=== PATIENT | female | born 1940 | race Caucasian/White ===

== ENCOUNTER 2019-06-23 11:50 | Inpatient (IN) ==
[2019-06-23] MEDS ORDERED: SODIUM CHLORIDE 0.9% INJ SCH (13:00)
[2019-06-23] MEDS ORDERED: PROTONIX IV SCH (13:00)
[2019-06-23 13:30] LABS: BASO# 0.03 X1000 (0.0-0.2); BASO% 0.4 % (0.0-0.8); EOS# 0.07 X1000 (0.0-0.7); EOS% 0.8 % (0.0-10.0); HEMATOCRIT 39.1 % (37.0-47.0); HEMOGLOBIN 12.9 g/dL (12.0-16.0); LYMPH# 0.98 X1000 (1.2-3.4); LYMPH% 11.5 % (20.5-51.1); MCH 28.9 PG (27-31); MCV 87.7 FL (81-99); MONO# 0.56 X1000 (0.11-0.59); MONO% 6.6 % (1.7-9.3); MPV 9.1 FL (7.4-10.4); NEUT# 6.86 X1000 (1.4-6.5); NEUT% 80.7 % (42.2-75.2); PLT 226 X1000 (130-400); RBC 4.46 XMIL (4.2-5.4)
--- NOTE | 2019-06-23 13:42 | Diag Imaging Result Doc PS360 ---
EXAM: CHEST-2 VIEWS INDICATION: Cough TECHNIQUE: 2 views COMPARISON: 06/20/2019 FINDINGS: The lungs are grossly clear. There is no discrete pleural fluid collection or pneumothorax. The cardiomediastinal silhouette and central vasculature are grossly unremarkable. IMPRESSION: No evidence of acute pathology by plain radiograph. Electronically signed by Praveen Balbuena 06/23/2019 1:39 PM
[2019-06-23 13:49] LABS: CALCIUM 9.1 mg/dL (8.8-10.2); CREATININE 1.5 mg/dL (0.5-0.9); POTASSIUM 4.7 mmol/L (3.5-5.1)
--- NOTE | 2019-06-23 14:30 | HISTORY AND PHYSICAL ---
PRIMARY CARE PHYSICIAN: Dr. Georges Patel. CHIEF COMPLAINT: Elevated blood pressure and rectal bleeding over the past several days that has progressively worsened. HISTORY OF PRESENTING ILLNESS: This is a 79-year-old female who presented as a direct admission from her primary care physician's office, Dr. Patel. She had apparently come to the emergency room on 06/20/2019 with an elevated blood pressure and was sent home to follow up with her primary care physician. She did that today and while in the office, was found to have a blood pressure of 198/100. States that over the past 4 to 5 days, she had been having some bright red rectal bleeding that occurred any time she sat down at the toilet to use the bathroom, and denied any abdominal pain. She did have some mild nausea. Denied any chest pain, headache, blurred vision, so it was felt that she would be direct admitted for further evaluation and treatment. PAST MEDICAL HISTORY: Hypertension, GERD, irritable bowel syndrome, gout, rheumatoid arthritis, and major depressive disorder. PAST SURGICAL HISTORY: Appendectomy, cholecystectomy, hysterectomy, and tonsillectomy. FAMILY HISTORY: Of diabetes, coronary artery disease, CVA, and hypertension. SOCIAL HISTORY: She currently lives with family. Denied any tobacco, alcohol, or illicit drug use. ALLERGIES: Honey, peanuts, shellfish-derived, aspirin, codeine, Benadryl, lidocaine, Demerol, penicillin, Darvon, and sulfa drugs. HOME MEDICATIONS: A current list will need to be obtained, reconciled, reviewed, and restarted as appropriate. We will place an order for nursing to update and confirm home medications. LABORATORY DATA: We are obtaining a CBC, BMP, stool for occult blood, two-view chest x-ray, CPK, troponin, magnesium level, and we will review those once they have resulted. REVIEW OF SYSTEMS: She denied any fever, chills, blurred vision, dizziness, chest pain, coughing, shortness of breath. She did have some mild nausea, bright red rectal bleeding. No constipation, diarrhea, burning or hurting with urination. PHYSICAL EXAMINATION: VITAL SIGNS: On arrival, she had a blood pressure of 198/100. GENERAL: This is a 79-year-old, female, lying in the bed. Answers questions appropriately. HEENT: Normocephalic, atraumatic. Normal ENT inspection. Oropharynx and nares are clear. Eyes: Pupils are equal, round, and reactive to light and accommodation. Extraocular movements are intact. NECK: Normal inspection. Normal range of motion. LUNGS: Clear to auscultation bilaterally with equal lung expansion and chest wall movement. HEART: Regular rate and rhythm. No murmurs, rubs, or gallops. ABDOMEN: Soft, nontender, nondistended. Bowel sounds are present x4 quadrants. MUSCULOSKELETAL: She had 5/5 strength x4 extremities. NEUROLOGICAL: The cranial nerves 2-12 appear grossly intact. ASSESSMENT: 1. Uncontrolled hypertension. 2. Gastrointestinal bleed. 3. Gastroesophageal reflux disease. 4. History of irritable bowel syndrome. PLAN: She was admitted to the medical unit, placed on telemetry, healthy heart diet. We will apply SCDs for DVT prophylaxis. Update and confirm home medications. We will consult GI. We will check a CBC, BMP, stool for occult blood, magnesium, CPK, troponin, two-view chest x-ray. Placed on hydralazine 10 mg IV q.4 hours p.r.n. for systolic blood pressure greater than 190, diastolic greater than 110. Protonix 40 mg IV q.24. Further orders after seen by attending and by insurance healthcare consultant. Dictated by LAURITA Wood for Eris Markham MD cc: LAURITA Wood MD Kirk L. Jackson, MD
[2019-06-23] MEDS: APRESOLINE IV PRN (15:07)
[2019-06-23] MEDS: AVAPRO PO SCH (16:45)
[2019-06-23] MEDS: D5 1/2 NS + KCL 20 MEQ 1,000 ML IV SCH (16:45)
[2019-06-23] MEDS ORDERED: GOLYTELY PO ONE (17:00)
--- NOTE | 2019-06-23 17:39 | HISTORY AND PHYSICAL ---
ADDENDUM: I have seen and examined Ms. Crespo today. The son was at the bedside at the time of the encounter. Ms. Crespo was a direct admit from Dr. Georges Patel office because of severe uncontrolled hypertension and rectal bleed. Ms. Crespo refers that for the past couple days about 3 days now she has a lot of rectal bleed which is bright red most times after using the restroom. Denies any chest pain. Denies any orthostatic symptoms. She also refers that lately her blood pressures have been extremely high. She has a history of hemorrhoids. She normally sees Dr. Ramsey and according to her, her last colonoscopy was done about 3 years to 4 years ago and to her knowledge everything was fine. Currently her vitals blood pressure is 204/110, pulse is about 80, respiration is 18. Physical exam for most part is unremarkable except that she is BMI is 38.8 and she is slightly dry on the mucous exams, abdomen is distended but nontender.Extremities: No pedal edema. 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 Her lab work this morning reveals normal CBC. Chemistry shows a creatinine of 1.5 which seems to be slightly higher than her baseline. BUN is also at 29. Chest x-ray shows no evidence of acute pathology. ASSESSMENT: 1. Hypertensive urgency. Patient will be started back on her home medications and titrate for better pressure control. 2. Painless rectal bleed of unclear etiology. Patient's hemoglobin and hematocrit at this point is stable, we are going to be trending this every 6 hours, we also notified GI to evaluate her. 3. Mild volume depletion. Will start the patient on the baseline IV fluids. 4. Acute on chronic renal failure. 5. Hearing impairment. So in general I think Ms. Crespo is fairly stable. She does not seems to have any acute end organ symptoms related to the uncontrolled hypertension. We will restart her back on her home medications, withhold the hydrochlorothiazide because of the clinical volume depletion. We also added carvedilol are to help with blood pressure management. GI has been consulted to evaluate. Please refer to the details of the history and physical which has been dictated by the TRAFFIC ANALYST in the chart. cc: MD SOLOMON Linares
[2019-06-23 18:01] LABS: HEMATOCRIT 39.9 % (37.0-47.0); HEMOGLOBIN 13.7 g/dL (12.0-16.0)
[2019-06-23] MEDS: ISOPTIN SR PO SCH (21:11)
[2019-06-23] MEDS: ATIVAN PO SCH (21:11)
[2019-06-23] MEDS: TRESIBA FLEXTOUCH U-200 SUBQ SCH (21:12)
[2019-06-23] MEDS: APRESOLINE PO SCH (21:12)
[2019-06-23] MEDS: INSULIN PEN NEEDLES ONE ×2 (21:12→21:17)
[2019-06-23] MEDS: COREG PO SCH (21:12)
[2019-06-24] MEDS: ZOFRAN IV PRN ×2 (03:04→20:14)
[2019-06-24] MEDS: D5 1/2 NS + KCL 20 MEQ 1,000 ML IV SCH (05:03)
[2019-06-24 06:04] LABS: BASO# 0.02 X1000 (0.0-0.2); BASO% 0.3 % (0.0-0.8); EOS# 0.09 X1000 (0.0-0.7); EOS% 1.2 % (0.0-10.0); HEMATOCRIT 36.1 % (37.0-47.0); HEMOGLOBIN 12.1 g/dL (12.0-16.0); LYMPH# 0.87 X1000 (1.2-3.4); LYMPH% 11.7 % (20.5-51.1); MCH 29.2 PG (27-31); MCHC 33.5 g/dL (33-37); MCV 87.2 FL (81-99); MONO# 0.52 X1000 (0.11-0.59); MPV 9.4 FL (7.4-10.4); NEUT# 5.96 X1000 (1.4-6.5); NEUT% 79.8 % (42.2-75.2); PLT 217 X1000 (130-400); RBC 4.14 XMIL (4.2-5.4); RDW 13.9 % (11.5-14.5); WBC 7.46 X1000 (4.8-10.8)
[2019-06-24 06:20] LABS: CALCIUM 7.8 mg/dL (8.8-10.2); CREATININE 1.3 mg/dL (0.5-0.9); POTASSIUM 4.2 mmol/L (3.5-5.1)
[2019-06-24 06:43] LABS: URINE SOURCE CLEAN CATCH
[2019-06-24 06:47] LABS: BILIRUBIN URINE NEGATIVE (NEGATIVE); BLOOD URINE TRACE (NEGATIVE); COLOR YELLOW; GLUCOSE URINE NEGATIVE (NEGATIVE); KETONE URINE NEGATIVE (NEGATIVE); LEUKOCYTES URINE MODERATE (NEGATIVE); NITRITE URINE NEGATIVE (NEGATIVE); PROTEIN URINE TRACE mg/dL (NEGATIVE); SP GRAVITY URINE 1.019; TURBIDITY URINE CLEAR (CLEAR); UROBILINOGEN URINE NORMAL (NORMAL)
[2019-06-24 06:49] LABS: UR EPITHELIAL CELLS <10 /HPF (<10); URINE BACTERIA 1+ /HPF; URINE RBC 20-40 /HPF (<10)
[2019-06-24] MEDS: VIIBRYD PO SCH (08:23)
[2019-06-24] MEDS: ISOPTIN SR PO SCH ×2 (08:23→20:14)
[2019-06-24] MEDS: APRESOLINE PO SCH ×3 (08:23→20:14)
[2019-06-24] MEDS: AVAPRO PO SCH (08:23)
[2019-06-24] MEDS: COREG PO SCH ×2 (08:23→20:14)
[2019-06-24] MEDS: ATIVAN PO SCH ×2 (08:23→20:14)
[2019-06-24] MEDS ORDERED: HYDROCHLOROTHIAZIDE PO SCH (09:00)
--- NOTE | 2019-06-24 12:37 | GASTROENTEROLOGY CONSULTATION ---
DATE: 06/24/2019 REASON FOR CONSULTATION: Rectal bleeding. HISTORY OF PRESENT ILLNESS: This is a 79-year-old female who was a direct admission from her primary care doctor's office, Dr. Georges Patel. Patient had previously been in to the emergency room on 06/20/2019 with elevated blood pressure and was instructed to follow up with her primary physician. She saw Dr. Patel on the date of admission, in his office. Her blood pressure was 198/100. She has also reported having 4 to 5 days of bright red rectal bleeding any time she went to the bathroom. Denies abdominal pain, reported some mild nausea but no reported vomiting. No reported chest pain or headache. No dizziness or lightheadedness. They are working on getting her blood pressure under control. From our records the patient was last seen in our office in 2014. Her last endoscopy procedures were in 2011. She had an EGD and colonoscopy with findings of normal esophagus, gastritis, external hemorrhoids, diverticulosis and any rectal polyp. PAST MEDICAL HISTORY: 1. Hypertension. 2. GERD. 3. Irritable bowel syndrome. 4. Gout. 5. Rheumatoid arthritis. 6. Major depressive disorder. PAST SURGICAL HISTORY: Appendectomy, cholecystectomy, hysterectomy, tonsillectomy. ALLERGIES: Honey causing shortness of breath. Peanuts shortness of breath. Shellfish shortness of breath. Aspirin nausea. Codeine itching. Benadryl nausea and vomiting. Lidocaine itching. Demerol flushing. Penicillin shortness of breath. Darvon flushing. Sulfonamide antibiotics flushing. HOME MEDICATIONS: 1. Benzonatate 100 mg 3 times a day as needed. 2. Vitamin B12 liquid 1000 mcg as needed. 3. Dexilant 60 mg daily. 4. Hydrochlorothiazide 12.5 mg every day. 5. Insulin 20 units every night. 6. Irbesartan 150 mg daily. 7. Ativan 0.5 mg 3 times a day. 8. Nystatin topical every night. 9. Zofran 4 mg every 4 hours as needed. 10. Verapamil 180 mg twice a day. 11. Viibryd 20 mg daily. SOCIAL HISTORY: She lives with family. Denies tobacco or alcohol use. FAMILY HISTORY: Diabetes, coronary artery disease, history of cerebrovascular accident and hypertension in her family. REVIEW OF SYSTEMS: Per history of present illness. PHYSICAL EXAMINATION: Vital Signs: Temperature 98 degrees, pulse 70, respirations 14, blood pressure 112/69. General: Patient is awake and alert. She is in no acute distress. She is hard of hearing. She has family members at the bedside at the time of my visit. HEENT: Normocephalic, atraumatic. Pupils equal, round, reactive to light. Sclerae nonicteric. Respiratory: Lung sounds essentially clear. Cardiovascular: Regular rate and rhythm. Abdomen: Soft, nontender. Positive bowel sounds. Nondistended. Extremities: No lower extremity edema noted. Neurologically: Cranial nerves 2-12 grossly intact. Patient is awake, alert, oriented to person, place, and time. LABORATORY: Hematology: WBCs 7.46 hemoglobin 12.1, hematocrit 36.1, MCV 87.2, platelets 217,000. Chemistry: Sodium 136, potassium 4.2, chloride 96, CO2 24, BUN 23, creatinine 1.3, glucose 164, calcium 7.8. ASSESSMENT,: 1. Hypertension. Patient has had medications. We will continue to follow her blood pressure. 2. Recent lower gastrointestinal bleeding. Currently hemoglobin and hematocrit is stable. Patient has had a bowel movement today with some noted blood per nurse report. 3. Gastroesophageal reflux disease on proton pump inhibitors. Patient does complain of occasional dysphagia. 4. Patient has history of irritable bowel syndrome. PLAN: Continue to monitor her blood pressure. Monitor for any further signs of active bleeding. Monitor hemoglobin and hematocrit and transfuse packed red blood cells if needed. If her blood pressure is stable we will proceed with EGD and colonoscopy. Patient was able to tolerate the colon prep last evening. Per nurse report, she is clear for colonoscopy procedure. Due to her complaints of dysphagia, we will also proceed with EGD. I have discussed the procedures along with benefits and risks, and patient wishes to proceed. I have discussed this case with Dr. Ramsey. Further plans will be made according to findings. Thank you for this consultation. Dictated by LAURITA Oneal for Chase Ramsey MD cc: LAURITA Dwyer MD
[2019-06-24] MEDS ORDERED: XYLOCAINE-MPF 2% ONE (12:49)
[2019-06-24] MEDS ORDERED: DIPRIVAN 1% ONE ×2 (12:49→13:15)
[2019-06-24] MEDS ORDERED: ROBINUL ONE (12:49)
[2019-06-24] MEDS ORDERED: CALMOSEPTINE OINTMENT TOP ONE (13:25)
--- NOTE | 2019-06-24 13:33 | ENDOSCOPY OPERATIVE NOTE ---
[facility] ENDOSCOPY OPERATIVE NOTE , PATIENT: Jesus Crespo ADMISSION DATE: 06/24/2019 MR#: [id number] : 1940 [facility] #: [id number] EGD PROCEDURE REPORT PROCEDURE DATE: 06/24/2019 SURGEON: Chase Ramsey MD STATUS: inpatient O AND M SUPERVISOR: Sneha De Santiago and Linh Molina PREOPERATIVE DIAGNOSIS: The patient is a 79 yr old female here for an EGD due to dysphagia, pharynge al-esophageal . PROCEDURE PERFORMED: EGD w/ dilation of esophagus via guidewire MEDICATIONS: Per Anesthesia TOPICAL ANESTHETIC: none CONSENT: The patient understands the risks and benefits of the procedure and understands that these r isks include, but are not limited to: sedation, allergic reaction, infection, perforation and/or bleeding. Alternative means of evaluation and treatment include, among others: physical exam, x-rays, and/or surgical intervention. The patient elects to proceed with this endoscopic procedure. HISORY AND PHYSICAL: 06/24/2019 DESCRIPTION OF PROCEDURE: During intra-op preparation period all mechanical and medical equipment was checked for proper function. Hand hygiene and appropriate measures for infection prevention was taken. After the risks, benefits and alternatives of the procedure were thoroughly explained, Informed consent was verified, confirmed and timeout was successfully executed by the treatment team. The patient was anesthetized with topical anesthesia and the [id number] ([id number]) endoscope was introduced through the mouth and advanced to the second portion of the duoden um. Retroflexion was performed in the stomach and revealed no abnormalities. The gastroscope was then slowly withdraw n and removed. ESOPHAGUS: A mildly severe Schatzki ring was found 40 cm from the incisors and at the gastroesophagea l junction. The stricture was dilated using a 20mm (60Fr) savary dilator over guidewire. Following this dilation, th ere was a small mucosal rent and a small amount of heme. The esophagus was otherwise normal. STOMACH: The mucosa of the stomach appeared normal. DUODENUM: The duodenal mucosa showed no abnormalities. SPECIMENS REMOVED: No ADVERSE EVENTS: There were no complications. POSTOPERATIVE DIAGNOSIS: 1. Schatzki ring was found 40 cm from the incisors and at the gastroeso phageal junction; The stricture was dilated using a 20mm (60Fr) savary dilator over guidewire.; Following this dilation , there was a small mucosal rent and a small amount of heme 2. The esophagus was otherwise normal 3. The mucosa of the stomach appeared normal 4. The duodenal mucosa showed no abnormalities RECOMMENDATIONS: 1. Start taking the following medications as prescribed: Carafate. 2. Omeprazole (Prilosec) 40mg PO daily 3. Continue to colonoscopy procedure REPEAT EXAM: Chase Ramsey MD eSigned: Chase Ramsey MD 06/24/2019 1:32 PM cc: Georges Patel MD PATIENT NAME: Jesus Crespo MR#: [id number]
--- NOTE | 2019-06-24 13:37 | ENDOSCOPY OPERATIVE NOTE ---
[facility] ENDOSCOPY OPERATIVE NOTE , PATIENT: Jesus Cresop ADM DATE: 06/24/2019 MR #: [id number] : 1940 COLONOSCOPY PROCEDURE REPORT PROCEDURE DATE: 06/24/2019 SURGEON: Chase Ramsey MD STATUS: inpatient ROLL CAPPER: Sneha De Santiago and Linh Molina PREOPERATIVE DIAGNOSIS: The patient is a 79 yr old female here for a colonoscopy due to hematochezia . PROCEDURE PERFORMED: Colonoscopy, diagnostic MEDICATIONS: Per Anesthesia PREP TYPE: GoLytely
[2019-06-24] MEDS: CARAFATE LIQUID PO SCH ×2 (14:41→17:44)
[2019-06-24] MEDS: APRESOLINE IV PRN (17:52)
--- NOTE | 2019-06-24 18:24 | PROGRESS NOTE ---
DATE: 06/24/2019 SUBJECTIVE: This morning Ms. Crespo refers to be doing well. Denies any new complaint. Apparently, she said she had another bout of bleeding early on today. She is pending colonoscopy. OBJECTIVE: Vital signs: Blood pressure 154/94, pulse 84, respirations 22, temperature 97.8 degrees. On general exam, Ms. Crespo is a 79-year-old female. She was in bed. No distress. Mucosa was pink and moist. Anicteric. Acyanotic. Neck was supple. Chest was clear to auscultation. Cardiovascular: Regular rate and rhythm. There were no murmurs, no rubs, no gallops. GI: Abdomen was soft, nontender. Bowel sounds present. Extremities: No pedal edema. SHEET TAILER: The patient was awake, alert and oriented. LABORATORY DATA: Hemoglobin was 12.1. The rest of the CBC is unremarkable. Chemistry also shows creatinine of 1.3. DIAGNOSTIC DATA: The report of the EGD was out at the time of the dictation, and it shows Schatzki ring at 40 cm from the incisors, which was dilated. Otherwise the esophagus, stomach and duodenal mucosa did not show any abnormality. Colonoscopy was also done, which showed mild nonbleeding diverticulosis on the left side. There was no evidence of AVMs and no evidence of ulcer. No tumor and no polyp. ASSESSMENT: 1. Hypertensive urgency on presentation. The patient's blood pressures are a lot better controlled now. 2. Painless rectal bleed of unclear etiology. The patient underwent colonoscopy, which for the most part was unremarkable except for nonbleeding mild diverticulosis. The patient's hemoglobin and hematocrit are stable. 3. Mild volume depletion, improved. 4. [id number] renal failure. Creatinine is down to 1.3. We are going to continue with the gentle fluids and re-evaluate her renal functions tomorrow morning. 5. Hearing impairment noted. 6. Schatzki ring at the gastroesophageal junction associated with stricture. This has been dilated during endoscopy. Otherwise endoscopy was unremarkable. We will continue with omeprazole 40 mg daily and Carafate as recommended by Gastroenterology. PLAN: In general, I think Ms. Crespo is doing well. Both EGD and colonoscopy are for the most part unremarkable except for the Schatzki ring which was dilated. Her hemoglobin and hematocrit remain stable, so I think we will observe her overnight. If she remains stable, she will be able to be discharged tomorrow to follow up with Dr. Ramsey on outpatient basis. Ms. Crespo's urine culture that was done a couple of days before this admission grew Proteus mirabilis; however, she denies any complaints, so I think this is an asymptomatic bacteriuria and does not need any treatment. cc: Eris Markham MD MTDD
[2019-06-24] MEDS: TYLENOL PO PRN (20:14)
[2019-06-24] MEDS: TRESIBA FLEXTOUCH U-200 SUBQ SCH (20:15)
[2019-06-25] MEDS: APRESOLINE IV PRN (00:30)
[2019-06-25] MEDS: PRILOSEC PO SCH (06:37)
[2019-06-25 06:44] LABS: ALBUMIN 3.6 g/dL (3.5-5.0); CALCIUM 8.3 mg/dL (8.8-10.2); CREATININE 1.2 mg/dL (0.5-0.9); PHOSPHORUS 3.6 mg/dL (2.7-4.5); POTASSIUM 3.8 mmol/L (3.5-5.1)
[2019-06-25] MEDS: CARAFATE LIQUID PO SCH ×3 (08:35→17:13)
[2019-06-25] MEDS: APRESOLINE PO SCH ×3 (08:36→21:04)
[2019-06-25] MEDS: AVAPRO PO SCH (08:36)
[2019-06-25] MEDS: COREG PO SCH ×2 (08:36→21:04)
[2019-06-25] MEDS: ATIVAN PO SCH ×2 (08:36→21:04)
[2019-06-25] MEDS: ISOPTIN SR PO SCH ×2 (08:37→21:04)
[2019-06-25] MEDS: VIIBRYD PO SCH (08:37)
--- NOTE | 2019-06-25 12:03 | PROGRESS NOTE ---
DATE: 06/25/2019 SUBJECTIVE: This patient seems to be more stable but she seems to be anxious. Her blood pressure has been up and down. Yesterday night at midnight, it was around 220/105. I checked her blood pressure at the bedside and at this moment, the systolic blood pressure was around 118. I believe she is on the right medications. I will monitor this patient closely. I will get an echocardiogram and also a renal ultrasound to rule out renal artery stenosis. I will check her TSH and the hemoglobin A1c as well. OBJECTIVE: Vital Signs: Temperature 98.3 degrees, pulse 62, respiratory rate 20, blood pressure 156/89, oxygen saturation 97% on room air. I just rechecked the blood pressure at the bedside and the systolic blood pressure was 118 on the monitor. HEENT: Head normocephalic. No trauma. PERRLA. Neck: Supple. No JVD. No masses. Central trachea. Chest: Clear to auscultation. No wheezing. No rales. Abdomen: Protuberant, soft, nontender, nondistended. No hepatosplenomegaly. Extremities: No edema, no clubbing, no cyanosis. Neurological Examination: The patient is alert. She is oriented. She does not have any focal weakness. She is really anxious. Laboratory: Sodium 133, potassium 3.8, chloride 98, bicarbonate 21, BUN 16, creatinine 1.2, glucose 113, calcium 8.3, albumin 3.6. ASSESSMENT AND PLAN: 1. Hypertensive urgency on presentation. The blood pressure seems to be better at this moment but during the night, it increased to 220. I do believe there is a component of anxiety on this patient. She seems to be a little bit more relaxed. She is on Ativan at home, which I will continue. I will ask for a renal ultrasound and also an echocardiogram. I believe the renal ultrasound is going to be within normal limits since she is on ARBs and the kidney function is better but I will rule it out anyway. 2. Painless rectal bleed of unclear etiology. The patient underwent a colonoscopy that was basically unremarkable except for nonbleeding mild diverticulosis. Hemoglobin and hematocrit have been stable. 3. Acute on chronic renal failure. I do believe this is her baseline. We will continue to monitor. 4. Hearing impairment, noted. 5. A Schatzki's ring at the gastroesophageal junction associated with a stricture, dilated during endoscopy. Continue with proton pump inhibitors as recommended and Carafate. 6. I believe this patient is doing better. Prior to the admission, this patient had a urine culture that showed Proteus mirabilis but this is asymptomatic. cc: Pablo Collins MD
--- NOTE | 2019-06-25 16:21 | ECHO REPORT ---
ORDER DATE: 06/25/2019 INDICATION: CHF, hypertension, CKD. FINDINGS: 1. The right atrium appears normal in size. 2. Mild tricuspid regurgitation. Insufficient data to estimate RV systolic pressure. 3. Normal RV size and systolic function. 4. No significant pulmonic insufficiency. 5. Mild left atrial enlargement with a volume index of 31. 6. No mitral valve prolapse. Mild mitral regurgitation. No mitral stenosis. 7. Normal LV size, end-diastolic dimension of 5.1 cm. Mild left ventricular hypertrophy with interventricular septal wall thickness of 1.4 cm. Normal LV systolic function. Estimated EF is 65% with normal wall motion. 8. Aortic valve opens well. It is trileaflet. Trace insufficiency. No stenosis. 9. Aorta appears normal in visualized segments. 10. No pericardial effusion seen. cc: MD Pablo Vang MD
--- NOTE | 2019-06-25 17:04 | Diag Imaging Result Doc PS360 ---
EXAM: US DUPLEX RENAL ARTY/VEIN LMTD INDICATION: Severe hypertension TECHNIQUE: COMPARISON: None. FINDINGS: The peak systolic velocity at the aorta is 33.2 cm/s and proximal to the renal artery it is 62.2 cm/s. Right: The peak systolic velocity at the proximal right renal artery is 29.5 cm/s. Peak systolic velocity is 25.7, 20.1 and 16.3 cm/s at the upper, mid, and lower segmental arteries. The right renal artery ratio is 4.7. Resistive index is 0.93. There is a small simple right renal cyst and a small hyperechoic focus that probably represents an intrarenal stone on the right. Left: The peak systolic velocity of the proximal left renal artery is 28.6 cm/s. The peak systolic velocity is 12.8, 21.7, and 19.5 cm/s at the upper, mid, and lower segmental arteries. The left renal artery ratio is 4.6. The resistive index is 1.0. There is a small simple left renal cyst. IMPRESSION: Elevated resistive indices and renal artery ratio is bilaterally, which is suggestive of renal artery stenosis. Electronically signed by Praveen Balbuena 06/25/2019 5:01 PM
[2019-06-25] MEDS ORDERED: INSULIN PEN NEEDLES ONE (20:36)
[2019-06-25] MEDS: TYLENOL PO PRN (21:04)
[2019-06-25] MEDS: TRESIBA FLEXTOUCH U-200 SUBQ SCH (21:04)
[2019-06-26] MEDS: PRILOSEC PO SCH (06:01)
[2019-06-26 06:25] LABS: BASO# 0.03 X1000 (0.0-0.2); BASO% 0.5 % (0.0-0.8); EOS# 0.18 X1000 (0.0-0.7); EOS% 2.9 % (0.0-10.0); HEMATOCRIT 33.6 % (37.0-47.0); HEMOGLOBIN 11.2 g/dL (12.0-16.0); LYMPH# 0.74 X1000 (1.2-3.4); LYMPH% 11.8 % (20.5-51.1); MCHC 33.3 g/dL (33-37); MONO# 0.67 X1000 (0.11-0.59); MONO% 10.7 % (1.7-9.3); MPV 9.4 FL (7.4-10.4); NEUT# 4.65 X1000 (1.4-6.5); NEUT% 74.1 % (42.2-75.2); PLT 233 X1000 (130-400); RBC 3.86 XMIL (4.2-5.4); RDW 13.8 % (11.5-14.5); WBC 6.27 X1000 (4.8-10.8)
[2019-06-26 06:53] LABS: HEMOGLOBIN A1C 5.6 % (4.8-6.0)
[2019-06-26 06:56] LABS: ALB/GLOB RATIO 1.3; ALBUMIN 3.3 g/dL (3.5-5.0); CALCIUM 8.1 mg/dL (8.8-10.2); CREATININE 1.4 mg/dL (0.5-0.9); POTASSIUM 3.6 mmol/L (3.5-5.1); TOTAL BILIRUBIN 0.4 mg/dL (0.20-1.00); TOTAL PROTEIN 5.9 g/dL (6.3-8.3)
[2019-06-26] MEDS: CARAFATE LIQUID PO SCH ×3 (07:53→15:39)
[2019-06-26] MEDS: AVAPRO PO SCH ×2 (07:56→08:30)
[2019-06-26] MEDS: COREG PO SCH ×3 (07:56→20:48)
[2019-06-26] MEDS: ATIVAN PO SCH ×3 (07:56→20:48)
[2019-06-26] MEDS: VIIBRYD PO SCH ×2 (07:56→08:30)
[2019-06-26] MEDS: ISOPTIN SR PO SCH ×2 (07:56→08:30)
[2019-06-26] MEDS: APRESOLINE PO SCH ×4 (07:56→20:48)
--- NOTE | 2019-06-26 09:46 | PROGRESS NOTE ---
DATE: 06/26/2019 SUBJECTIVE: This patient states that she is feeling better. She seems to be less anxious today. Blood pressure went up yesterday in the afternoon to 193. As per the patient for the past month, the blood pressure has been going up and sometimes above 200. I did a renal ultrasound yesterday that showed elevated resistive indices and renal artery ratio bilaterally, which is suggestive of renal artery stenosis. Nephrology Department and Surgery Department have been consulted. I will wait for recommendations. OBJECTIVE: Vital Signs: Temperature 98.6 degrees, pulse 68, respiratory rate 15, blood pressure 169/61, oxygen saturation 98 on room air. HEENT: Head normocephalic. No trauma. PERRLA. Neck: Supple. No JVD. No masses. Central trachea. Chest: Clear to auscultation. No wheezing. No rales. Abdomen: Soft, protuberant, nontender, nondistended. No hepatosplenomegaly. Extremities: No edema, no clubbing, no cyanosis. Neurological: The patient is alert. She is oriented. She does not have any focal weakness. She seems to be a little bit anxious but compared with yesterday, she is better. LABORATORY DATA: WBC 6.2, hemoglobin 11.2, hematocrit 33.6, platelets 233,000. Sodium 134, potassium 3.6, chloride 97, bicarbonate 25, BUN 21, creatinine 1.4, glucose 79, calcium 8.1. ASSESSMENT AND PLAN: 1. Hypertensive urgency on presentation. Blood pressure seems to be better, but she has been having high blood pressure on and off even though she has been on medications. Nephrology Department has been consulted. It looks like she has bilateral renal artery stenosis, but we still need to work on this. 2. Painless rectal bleed of unclear etiology. This patient underwent a colonoscopy that was basically unremarkable except for no bleeding, mild diverticulosis. Hemoglobin and hematocrit have been stable. 3. Acute on chronic kidney disease. It looks like this is her baseline. Continue to monitor. Nephrology on board. 4. Hearing impairment, noted. 5. Schatzki ring at the gastroesophageal junction, associated with a stricture, dilated during endoscopy. Continue proton pump inhibitors as recommended by Gastroenterology, also Carafate. 6. Bilateral renal artery stenosis by ultrasound. Nephrology Department has been consulted. The case will be discussed also with Surgery Department to see if we need to go ahead and do any kind of procedure. cc: Pablo Collins MD
--- NOTE | 2019-06-26 13:52 | NEPHROLOGY CONSULTATION ---
DATE: 06/26/2019 REASON FOR CONSULTATION: Hypertension and possible renal artery stenosis. HISTORY OF PRESENT ILLNESS: Ms. Crespo is a 79-year-old white female with long-standing hypertension as well as hyperlipidemia, IBS, rheumatoid arthritis. She states that she came to the emergency room because her blood pressure was markedly elevated at home. She has been monitoring it regularly and she states over the last 1 month, her pressure has been significantly higher than her previous baseline. She was not having particular symptoms related to this. No chest pain. No headaches, blurred vision, nausea, vomiting, fluid retention, shortness of breath, PND or orthopnea, etc. Her initial evaluation in the emergency room found her blood pressure to be 204/110. She was treated medically and has had progressive improvement in her hypertension. At the current time, she is sitting up in bed and eating her breakfast without difficulty. She also was complaining of blood in her stool on admission. She states that she has been examined by Dr. Alamo who told her she could wait 80 years for her next endoscopy, no findings. She is not a smoker. She did live with a smoker in the past. PAST MEDICAL HISTORY: As above. HOME MEDICATIONS: Include 1. Dexilant. 2. Lorazepam. 4. Hydrochlorothiazide. 5. Irbesartan. 6. Insulin. 7. Cyanocobalamin. 8. Ondansetron. 9. Benzonatate. 10. Verapamil. ALLERGIES: 1. Multiple food allergies. 2. She also has codeine and aspirin allergies. SOCIAL HISTORY: Lives with her family. No alcohol or tobacco. FAMILY HISTORY: Otherwise noncontributory. REVIEW OF SYSTEMS: Otherwise noncontributory. PHYSICAL EXAMINATION: Vital Signs: Blood pressure 169/61, heart rate 68, respirations 15, afebrile. General: No acute distress. Skin: Warm and dry. Conjunctivae are pink. Neck: Neck veins are not distended. Heart: Regular. No gallops or murmurs. Lungs: Have equal breath sounds. No crackles or wheezes. Abdomen: Soft, nontender. Bowel sounds present. Extremities: No edema clubbing or cyanosis. IMPRESSION: 1. Hypertension. Pattern of acceleration in the last 1 month. Asymptomatic. Duplex Doppler demonstrated possible bilateral renal artery stenosis. Kidney sizes are normal. (10.3 cm right, 10.5 cm left). I have discussed the case directly with Dr. Pedroza as well as with Dr. Albrecht. I would recommend changing her Verapamil to amlodipine and discharge her on all of her other current medications. We will follow her in the office and if her blood pressure is unmanageable, we will consider referral to Dr. Pedroza for selective renal arteriography. cc: Etienne Ball MD [facility]
[2019-06-26] MEDS: NORVASC PO SCH (20:48)
[2019-06-26] MEDS: TRESIBA FLEXTOUCH U-200 SUBQ SCH (21:25)
[2019-06-27] MEDS: PRILOSEC PO SCH ×2 (05:41→06:03)
[2019-06-27] MEDS: CARAFATE LIQUID PO SCH ×2 (05:41→06:02)
[2019-06-27 06:32] LABS: CALCIUM 8.6 mg/dL (8.8-10.2); CREATININE 1.7 mg/dL (0.5-0.9); POTASSIUM 4.1 mmol/L (3.5-5.1)
[2019-06-27 07:56] VITALS: BP 186/72
[2019-06-27] MEDS: COREG PO SCH (09:43)
[2019-06-27] MEDS: VIIBRYD PO SCH (09:44)
[2019-06-27] MEDS: APRESOLINE PO SCH (09:44)
[2019-06-27] MEDS: NORVASC PO SCH (09:44)
[2019-06-27] MEDS: AVAPRO PO SCH (09:44)
[2019-06-27] MEDS: ATIVAN PO SCH (09:44)
--- NOTE | 2019-06-27 12:03 | NEPHROLOGY PROGRESS NOTE ---
DATE: 06/27/2019 SUBJECTIVE: She is anticipating discharge. Her blood pressure continues to fluctuate significantly. No symptoms however. OBJECTIVE: Vital Signs: Blood pressure 186/72 and heart rate 69. IMPRESSION: Severe hypertension with chronic kidney disease stage 3. No changes. I agree with her discharge regimen. She will call me if she has any questions regarding what to do with her medication. We will see her in the office. cc: Etienne Ball MD
--- NOTE | 2019-06-27 14:26 | DISCHARGE SUMMARY ---
ADMISSION DATE: 06/23/2019 DISCHARGE DATE: 06/27/2019 PRIMARY CARE PHYSICIAN: Georges Patel MD CONSULTATIONS: GI and Nephrology. ADMISSION DIAGNOSES: 1. Uncontrolled hypertension. 2. Gastrointestinal bleed. 3. Gastroesophageal reflux disease. 4. History of irritable bowel syndrome. DISCHARGE DIAGNOSES: 1. Hypertensive urgency on presentation, improved. 2. Painless rectal bleeding of unclear etiology, status post colonoscopy that was unremarkable. 3. Acute on chronic kidney disease, back at baseline. 4. Schatzki's ring at the gastroesophageal junction associated with a stricture dilated during endoscopy. 5. Bilateral renal artery stenosis by ultrasound. SUMMARY OF FINDINGS: This is a 79-year-old female who presented as a direct admit from her primary care physician's office after she had come to the emergency room on 06/20/2019 with an elevated blood pressure, but was sent home, went to see her primary care physician the next day and was found to have a blood pressure of 198/100. Over the past 4 to 5 days prior to seeing her primary care physician she was having some bright red rectal bleeding that occurred anytime she sat down at the toilet to use the bathroom. Denied any abdominal pain. She was admitted. We consulted GI who did a colonoscopy on 06/24/2019 that showed a postoperative diagnosis of mucus of the terminal ileum appeared normal, mild nonbleeding diverticulosis noted in the left colon. No evidence of ulcer, no evidence of tumor, and no evidence of polyp. Colon mucosa was otherwise normal, and recommendations were to repeat colonoscopy only if needed. We did an aortorenal ultrasound that showed elevated resistive indices and renal artery ratio is bilateral, which is suggestive for renal artery stenosis. Nephrology was consulted and he discussed the case directly with Dr. Pedroza as well as Dr. Collins per his consultation note and recommended changing her verapamil to amlodipine and to discharge her on all her other medications. Nephrology would follow her in the office and if her blood pressure is unmanageable, consider a referral to Dr. Pedroza for a selective renal arteriography. We also did an echocardiogram on 06/25/2019 that showed an ejection fraction of 65% with normal LV size an end-diastolic dimension of 5.1 cm. It is now felt that she can safely be discharged home. Blood pressure is improved today down to 186/72. She will need to see Dr. Ball in 1 week and the discharge nurse will set up an appointment for her and they will call her with the appointment time next week. DISCHARGE MEDICATIONS: Norvasc 5 mg p.o. b.i.d., Coreg 12.5 mg p.o. b.i.d., Apresoline 25 mg p.o. t.i.d. to receive at 20 units subcutaneous at bedtime, irbesartan 150 mg p.o. daily, lorazepam 0.5 mg p.o. b.i.d., omeprazole 40 mg p.o. daily, Viibryd 20 mg p.o. daily, benzonatate 100 mg p.o. t.i.d. p.r.n., and liquid vitamin 12 1,000 mcg p.o. p.r.n., ondansetron 4 mg p.o. every 4 hours p.r.n., and Carafate 1 gm p.o. 4 times daily. FOLLOWUP: Again, she will have home health care. She will follow up with Dr. Ball after they call her on Saturday with her scheduled appointment time. She will follow up with GI and with her primary care physician in the next 1 to 2 weeks. All discharge instructions were reviewed with the patient and she verbalized understanding. TIME SPENT: This is a 35-minute discharge. Dictated by LAURITA Wood for Pablo Collins MD cc: LAURITA Wood MD Reginald D. Gladish, MD Kirk L. Jackson, MD Dr. Yousuf
== END 2019-06-27 11:20 | disposition home health service (06) | DRG 379 ==
LOC: SUATTDRO 11:50 → DIRADM 11:50 → 2N 12:16
PROVIDERS: ATTEND Internal Medicine

== ENCOUNTER 2019-07-14 11:53 | Inpatient (IN) ==
[2019-07-14] MEDS ORDERED: CARDIZEM IV ONE (12:34)
[2019-07-14] MEDS ORDERED: LASIX IV ONE ×2 (12:35→16:52)
[2019-07-14] MEDS ORDERED: LOVENOX SUBQ ONE (12:35)
[2019-07-14] MEDS ORDERED: ZOFRAN IV ONE (12:37)
[2019-07-14] MEDS ORDERED: MORPHINE IV ONE (12:37)
--- NOTE | 2019-07-14 12:51 | Diag Imaging Result Doc PS360 ---
EXAM: CHEST-2 VIEWS 07/14/2019 HISTORY: SOB TECHNIQUE: PA and lateral chest COMMENT: There are bilateral pleural effusions. There is interstitial opacity in both lung bases. This was not the case on 06/23/2019. The heart size is slightly enlarged. IMPRESSION: Pulmonary edema cardiomegaly and pleural effusions. Electronically signed by Manolo Gutierrez 07/14/2019 12:49 PM
--- NOTE | 2019-07-14 13:03 | EKG Report ---
Test Performed on : 07/14/2019 12:03:58 PM Test Reason : SOB Blood Pressure : / mmHG Vent. Rate : 106 BPM Atrial Rate : 127 BPM P-R Int : 000 ms QRS Dur : 090 ms QT Int : 340 ms P-R-T Axes : 000 030 046 degrees QTc Int : 451 ms Atrial fibrillation. with rapid ventricular response. Cannot rule out Anterior infarct (cited on or before 20-JUN-2019) Abnormal ECG When compared with ECG of 20-JUN-2019 18:38, (Unconfirmed) Atrial fibrillation. has replaced Sinus rhythm. Unconfirmed Result
[2019-07-14 13:35] LABS: BASO# 0.03 X1000 (0.0-0.2); BASO% 0.5 % (0.0-0.8); EOS# 0.12 X1000 (0.0-0.7); EOS% 1.9 % (0.0-10.0); HEMATOCRIT 31.1 % (37.0-47.0); HEMOGLOBIN 10.3 g/dL (12.0-16.0); LYMPH# 0.42 X1000 (1.2-3.4); LYMPH% 6.5 % (20.5-51.1); MCH 28.9 PG (27-31); MCHC 33.1 g/dL (33-37); MCV 87.1 FL (81-99); MONO# 0.37 X1000 (0.11-0.59); MONO% 5.8 % (1.7-9.3); MPV 10.4 FL (7.4-10.4); NEUT# 5.48 X1000 (1.4-6.5); NEUT% 85.3 % (42.2-75.2); PLT 175 X1000 (130-400); RBC 3.57 XMIL (4.2-5.4); RDW 13.3 % (11.5-14.5); WBC 6.42 X1000 (4.8-10.8)
[2019-07-14 13:45] LABS: INR 1.06; PROTIME 13.9 Seconds (11.0-16.0)
[2019-07-14 13:46] LABS: PTT 28.1 Seconds (22.3-41.8)
[2019-07-14] MEDS ORDERED: NORCO-5 PO ONE (13:55)
[2019-07-14 14:14] LABS: ALB/GLOB RATIO 1.3; ALBUMIN 3.4 g/dL (3.5-5.0); CALCIUM 8.5 mg/dL (8.8-10.2); CREATININE 1.3 mg/dL (0.5-0.9); POTASSIUM 4.5 mmol/L (3.5-5.1); TOTAL BILIRUBIN 0.54 mg/dL (0.20-1.00); TOTAL PROTEIN 6.1 g/dL (6.3-8.3)
--- NOTE | 2019-07-14 15:12 | Diag Imaging Result Doc PS360 ---
LUNG SCAN / VQ - 07/14/2019 INDICATION: Dyspnea, elevated creat TECHNIQUE: 40 mCi of DTPA was used for inhalation. 5.1 mCi of MAA was used for injection. COMPARISON: Chest x-ray earlier today FINDINGS: There is normal localization pattern of the radiotracer's. No evidence of pulmonary perfusion defects. IMPRESSION: Negative for pulmonary embolism. Electronically signed by Berry Payton 07/14/2019 3:10 PM
--- NOTE | 2019-07-14 16:48 | EKG Report ---
Test Performed on : 07/14/2019 2:10:16 PM Test Reason : ED. No order in [place] Blood Pressure : / mmHG Vent. Rate : 073 BPM Atrial Rate : 073 BPM P-R Int : 150 ms QRS Dur : 086 ms QT Int : 388 ms P-R-T Axes : 086 043 067 degrees QTc Int : 427 ms Sinus rhythm. with occasional premature ventricular complexes. Otherwise normal ECG When compared with ECG of 14-JUL-2019 12:03, (Unconfirmed) Sinus rhythm. has replaced Atrial fibrillation. Unconfirmed Result
--- NOTE | 2019-07-14 18:31 | PROVIDER DOCUMENTATION ---
This chart was entered by Michelle Hoyos Scribe, acting as scribe for Murali Infante MD. HPI-Respiratory General - General Chief Complaint: Shortness of Breath Stated Complaint: SOB,WEAK,VOMITING,BACK PAIN Time Seen by Provider: 07/14/19 12:27 Source: patient Allergies/Adverse Reactions: Patient Allergies Allergy/AdvReac Type Severity Reaction Status Date / Time honey Allergy Severe SHORTNESS Verified 06/20/19 18:49 OF BREATH peanut Allergy Severe SHORTNESS Verified 06/20/19 18:49 OF BREATH shellfish derived Allergy Severe SHORTNESS Verified 06/20/19 18:49 OF BREATH aspirin Allergy NAUSEA Verified 06/20/19 18:49 codeine [Codeine] Allergy ITCHING Verified 06/20/19 18:49 diphenhydramine HCl * Allergy NAUSEA/VOMI Verified 06/20/19 18:49 [From Benadryl] TING lidocaine Allergy ITCHING Verified 06/20/19 18:49 meperidine HCl * Allergy FLUSHING Verified 06/20/19 18:49 [From Demerol] Penicillins Allergy SHORTNESS Verified 06/20/19 18:49 OF BREATH propoxyphene HCl * Allergy FLUSHING Verified 06/20/19 18:49 [From Darvon] Sulfa (Sulfonamide Allergy FLUSHING Verified 06/20/19 18:49 Antibiotics) [Sulfa(Sulfonamide Antibiotics)] Home Medications: Home Medication List Medication Instructions Recorded Confirmed Last Taken Type Lorazepam [Ativan] 0.5 mg PO BID #0 tablet 06/14/14 07/14/19 07/14/19 Rx Vilazodone Hydrochloride [Viibryd] 20 mg PO DAILY 10/02/17 07/14/19 07/14/19 History Insulin Degludec [Tresiba 20 unit SQ QHS 06/20/19 07/14/19 07/13/19 History Flextouch U-200] Irbesartan 50 mg PO QHS 06/20/19 07/14/19 07/13/19 History Cyanocobalamin (Vitamin B-12) 1,000 mcg PO PRN PRN 06/23/19 07/14/19 07/14/19 History [Liquid B-12] Carvedilol [Coreg] 12.5 mg PO BID #120 tab 10/07/14/19 07/14/19 Rx Omeprazole [Prilosec] 40 mg PO DAILY@0700 #90 cap 06/27/19 07/14/19 07/14/19 Rx Sucralfate [Carafate] 1 gm PO 4XDAY #160 tab 06/27/19 07/14/19 Unknown Rx Amlodipine [Norvasc] 5 mg PO DAILY 07/14/19 07/14/19 07/14/19 History Hydralazine [Apresoline] 25 mg PO BID 07/14/19 07/14/19 07/14/19 History - History of Present Illness-Resp Nature of Presenting Problem: Patient is a 79 year old female who presents with shortness of breath and weakness. States symptoms have been present for 4 days. Denies fever and chills. Denies history of A fib. Reports recently being admitted. Quality of Pain: reports: none Severity in ED: reports: mild Onset/Duration: reports: 4 days ago Timing: reports: still present Modifying Factors: worse with: exertion Associated Symptoms: reports: shortness of breath, other (weakness) Similar Symptoms Previously?: Yes Recently seen or treated by another doctor?: Yes Review of Systems - Adult - REVIEW OF SYSTEMS - ADULT Constitutional: reports: no symptoms reported. denies: chills, fever, fatique Eyes: reports: no symptoms reported Ears, Nose, Mouth & Throat: reports: no symptoms reported Cardiovascular: reports: no symptoms reported Respiratory: reports: see HPI, shortness of breath. denies: cough, wheezing Gastrointestinal: reports: no symptoms reported Genitourinary: reports: no symptoms reported Musculoskeletal: reports: see HPI, back pain, muscle weakness. denies: neck pain Integumentary: reports: no symptoms reported Neurological: reports: no symptoms reported Psychiatric: reports: no symptoms reported Endocrine: reports: no symptoms reported Hematologic/Lymphatic: reports: no symptoms reported Allergic/Immunologic: reports: no symptoms reported All Other Systems: Reviewed and Negative Past History - Adult - PAST MEDICAL HISTORY-ADULT Review of Records: reports: Old Records Reviewed, Nursing Assessment Review, Medications Reviewed, Social history reviewed & non-contributory. Major Childhood Illnesses: reports: denies history Cardiovascular: reports: HTN, hyperlipidemia, other (tachydysrhythmia) Respiratory: reports: denies history Gastrointestinal: reports: GERD, other (hx of colitis with severe dehydration/ IBS/ constipation chronic) Obstetrical/Gynecological: reports: denies history Genitourinary: reports: kidney disease Musculoskeletal: reports: arthritis (Knee ) Neurological: reports: denies history Psychiatric: reports: denies history Endocrine/Immune: reports: Diabetes Other Conditions: reports: denies history, other (Strong family hx of DM. ALso fam hx of stroke, [place], HTN) - PRIOR SURGERIES/PROCEDURES Surgical/Procedure History: reports: appendectomy, cholecystectomy, hysterectomy , tonsillectomy - IMMUNIZATION STATUS Childhood Immunizations: UTD Flu Vaccine: See Nurse Assessment - FAMILY HISTORY Family History: diabetes, CAD over 55 yo, CVA/TIA, HTN - SOCIAL HISTORY Smoking: denies Substance Use: denies Physical Exam-General - PHYSICAL EXAM-ADULT Initial Vital Signs Reviewed: Yes - CONSTITUTIONAL General Appearance: alert, no apparent distress. negative: lethargic - HEAD, EARS, NOSE, MOUTH & THROAT HENMT: normocephalic/atraumatic, moist mucous membranes. negative: angioedema - RESPIRATORY Respiratory: chest non-tender, increased rate. negative: wheezing - CARDIOVASCULAR Cardiovascular: normal peripheral pulses, tachycardia, irregularly irregular, other (patient converted into NSR on physical exam). negative: systolic murmur - GASTROINTESTINAL (ABDOMEN) Abdominal Exam: normal bowel sounds, non tender, soft. negative: guarding, rebound - MUSCULOSKELETAL Extremity: normal inspection. negative: deformity, erythema, pedal edema - SKIN Integumentary: normal turgor, warm/dry, pallor. negative: diaphoresis, rash - NEUROLOGIC Neurologic: grossly normal. negative: aphasia, facial droop - PSYCHIATRIC Psych/Mental Status: normal mood/affect, oriented x 3. negative: anxious Progress - PLAN OF CARE/RESULTS Progress/Plan/Lab Results: Vital Signs - 8 hr 07/14/19 12:03 Temperature 98.3 F Pulse Rate 103 H Respiratory Rate 20 Blood Pressure 122/76 O2 Sat by Pulse Oximetry 95 Laboratory Results - last 24 hr 07/14/19 07/14/19 07/14/19 13:19 13:19 13:19 WBC 6.42 RBC 3.57 L Hgb 10.3 L Hct 31.1 L MCV 87.1 MCH 28.9 MCHC 33.1 RDW Std Deviation 13.3 Plt Count 175 MPV 10.4 Immature Gran % (Auto) 0.0 Neut % (Auto) 85.3 H Lymph % (Auto) 6.5 L [place] % (Auto) 5.8 Eos % (Auto) 1.9 Baso % (Auto) 0.5 Immature Gran # (Auto) 0.00 Neut # (Auto) 5.48 Lymph # (Auto) 0.42 L [place] # (Auto) 0.37 Eos # (Auto) 0.12 Baso # (Auto) 0.03 PT INR PTT (Actin FS) Sodium 137 Potassium 4.5 Chloride 101 Carbon Dioxide 21 L Anion Gap 15 BUN 24 H Creatinine 1.3 H Estimated GFR/1.73 m2 40 BUN/Creatinine Ratio 18 Glucose 154 H Calculated Osmolality 281 Calcium 8.5 L Magnesium 2.0 Total Bilirubin 0.54 AST 26 ALT 50 H Alkaline Phosphatase 244 H Creatine Kinase 34 Troponin T Fcm-[id number]-Amtvyxwvpeo Pept 5002 H Total Protein 6.1 L Albumin 3.4 L Globulin 2.7 Albumin/Globulin Ratio 1.3 07/14/19 07/14/19 13:19 13:19 WBC RBC Hgb Hct MCV MCH MCHC RDW Std Deviation Plt Count MPV Immature Gran % (Auto) Neut % (Auto) Lymph % (Auto) [place] % (Auto) Eos % (Auto) Baso % (Auto) Immature Gran # (Auto) Neut # (Auto) Lymph # (Auto) [place] # (Auto) Eos # (Auto) Baso # (Auto) PT 13.9 INR 1.06 PTT (Actin FS) 28.1 Sodium Potassium Chloride Carbon Dioxide Anion Gap BUN Creatinine Estimated GFR/1.73 m2 BUN/Creatinine Ratio Glucose Calculated Osmolality Calcium Magnesium Total Bilirubin AST ALT Alkaline Phosphatase Creatine Kinase Troponin T < 0.010 Ulu-M-Ectkkflaaqh Pept Total Protein Albumin Globulin Albumin/Globulin Ratio Orders Category Date Time Status Admit - [facility] Routine AdmDCTranf 07/14/19 18:00 Active Activity - Up with Assistance ORDERED Care 07/14/19 18:00 Active Apply Mechanical Device [QM] ORDERED Care 07/14/19 18:00 Active Cardiac Monitoring DIRECTED Care 07/14/19 12:18 Active FSBS/Accucheck Result AC + HS Care 07/14/19 18:00 Active Intake and Output-Strict ORDERED Care 07/14/19 18:00 Active Nursing- MD Consult Request ROUTINE Care 07/14/19 18:00 Active Oxygen Therapy- ED Nursing DIRECTED Care 07/14/19 12:18 Active Saline Loc NOW Care 07/14/19 12:18 Active Vital Signs Order Q 4-HR ASSESS Care 07/14/19 18:00 Active Z-Document. for Tele Applied ORDERED Care 07/14/19 18:00 Active MD [Physician/Provider Consults] Routine Cons 07/14/19 18:00 Ordered Heart Healthy Diet Diet 07/14/19 18:00 Active CHEST-2 VIEWS [RAD] Stat Exams 07/14/19 12:18 Completed CHEST-PORTABLE [RAD] Routine Exams 07/15/19 06:00 Ordered LUNG SCAN / VQ [NM] Stat Exams 07/14/19 12:33 Completed CBC WITH DIFF [HEME] Routine Lab 07/15/19 06:00 Ordered CBC WITH ELECTRONIC DIFF [HEME] Stat Lab 07/14/19 13:19 Completed CK PROFILE [SP CHEM] Stat Lab 07/14/19 13:19 Completed COMPREHENSIVE METABOLIC PANEL [CHEM] Routine Lab 07/15/19 06:00 Ordered COMPREHENSIVE METABOLIC PANEL [CHEM] Stat Lab 07/14/19 13:19 Completed MAGNESIUM [CHEM] Routine Lab 07/15/19 06:00 Ordered MAGNESIUM [CHEM] Stat Lab 07/14/19 13:19 Completed PRO B-NATRIURETIC PEPTIDE Stat Lab 07/14/19 13:19 Completed PROTIME WITH INR [COAG] Stat Lab 07/14/19 13:19 Completed PTT [COAG] Stat Lab 07/14/19 13:19 Completed TROPONIN T Routine Lab 07/14/19 18:00 Ordered TROPONIN T Stat Lab 07/14/19 13:19 Completed TROPONIN T Timed Lab 07/15/19 01:00 Ordered Acetaminophen [Tylenol] Med 07/14/19 18:00 Active 650 mg PO Q6H PRN PRN Amlodipine [Norvasc] Med 07/15/19 09:00 Active 5 mg PO DAILY Carvedilol [Coreg] Med 07/14/19 21:00 Active 12.5 mg PO BID Diltiazem [Cardizem] Med 07/14/19 12:34 Discontinued 10 mg IV NOW ONE Enoxaparin [Lovenox] Med 07/14/19 12:35 Discontinued 80 mg SUBQ NOW ONE Furosemide [Lasix] Med 07/14/19 12:35 Discontinued 20 mg IV NOW ONE Furosemide [Lasix] Med 07/14/19 16:52 Discontinued 40 mg IV NOW ONE Furosemide [Lasix] Med 07/14/19 21:00 Active 40 mg IV Q12H Hydrocodone/APAP 5 mg/325 mg [Parrish-5] Med 07/14/19 13:55 Discontinued 1 each PO NOW ONE Insulin Lispro [Humalog] Med 07/14/19 21:00 Active See Protocol SUBQ 0700,1100,1600,2100 Irbesartan [Avapro] Med 07/14/19 21:00 Ordered 50 mg PO QHS Lorazepam [Ativan] Med 07/14/19 21:00 Active 0.5 mg PO BID Morphine Med 07/14/19 12:37 Discontinued 2 mg IV NOW ONE Omeprazole [Prilosec] Med 07/15/19 07:00 Active 40 mg PO DAILY@0700 Ondansetron [Zofran] Med 07/14/19 12:37 Discontinued 4 mg IV NOW ONE Ondansetron [Zofran] Med 07/14/19 18:00 Active 4 mg IV Q4H PRN PRN Sucralfate [Carafate] Med 07/14/19 21:00 Active 1 gm PO 4XDAY Vilazodone Hydrochloride [Viibryd] Med 07/15/19 09:00 Ordered 20 mg PO DAILY Oxygen Device Routine Oth 07/14/19 18:00 Active Telemetry [OM.EQ] Routine Oth 07/14/19 18:00 Active EKG [EKG] Routine Ther 07/15/19 08:00 Ordered EKG [EKG] Stat Ther 07/14/19 12:18 Draft EKG [EKG] Stat Ther 07/14/19 14:10 Draft Transfer/Admit Order [TRANSFER] Routine Transfer 07/14/19 17:04 Completed LUNG SCAN / VQ - 07/14/2019 INDICATION: Dyspnea, elevated creat TECHNIQUE: 40 mCi of DTPA was used for inhalation. 5.1 mCi of MAA was used for injection. COMPARISON: Chest x-ray earlier today FINDINGS: There is normal localization pattern of the radiotracer's. No evidence of pulmonary perfusion defects. IMPRESSION: Negative for pulmonary embolism. Electronically signed by Berry Payton 07/14/2019 3:10 PM 07/14/19 6180 Interpreting Physician: Berry Payton MD Dictated Date/Time: 07/14/19 1509 cc: Murali Infante MD; Georges Patel MD Result Diagrams: 07/14/19 13:19 07/14/19 13:19 - REASSESSMENT Reassessment #1 Time Reassessed: 16:55 Status: improving (Patient converted to NSR on own from AFIB with RVR. Patient has new onset CHF likely d/t AFIB with RVR. WIll admit and cotninue to [facility]. OLD CHART REVIEWED, no prior diagnosis of CHF or AFIB.) - EKG 1 Time of EKG reading by physician:: 12:03 EKG Read and Signed by:: Murali Infante EKG Interpretation (*Must complete 3 of following elements*): Abnormal Rate: 106 Rhythm: atrial fibrillation with rapid ventricular response [place]: normal Comments: cannot rule out anterior infarct, age undetermined 2 Time of EKG reading by physician:: 14:10 EKG Read and Signed by:: Murali Infante EKG Interpretation (*Must complete 3 of following elements*): Abnormal Rate: 73 Rhythm: sinus rhythm with occasional premature ventricular response [place]: normal [place] Interval: normal Comments: otherwise normal ECG - XRAY 1 XRAY Study: Chest Impression: See EMR Report ( EXAM: CHEST-2 VIEWS 07/14/2019 HISTORY: SOB TECHNIQUE: PA and lateral chest COMMENT: There are bilateral pleural effusions. There is interstitial opacity in both lung bases. This was not the case on 06/23/2019. The heart size is slightly enlarged. IMPRESSION: Pulmonary edema cardiomegaly and pleural effusions. Electronically signed by Manolo Gutierrez 07/14/2019 12:49 PM 07/14/19 1249 Interpreting Physician: Manolo Gutierrez MD Dictated Date/Time: 07/14/19 1248 cc: Murali Infante MD; Georges Patel MD) - CONSULTS/PCP/HOSPITALIST Notification #1 *Consult/PCP/Hospitalist*: Hospitalist paged [phone] Time Discussed: 17:02 (Dr. Sofia accepted admit ) Reason/Comments: Dr. Infante consulted with LAURITA Melton about patient. Consult Disposition: Will see in ED, Admit Departure - Departure Date of Disposition Decision: 07/14/19 Time of Disposition Decision: 16:55 DIAGNOSIS: Dyspnea on exertion, New onset of congestive heart failure, New onset atrial fibrillation, Paroxysmal atrial fibrillation with RVR Disposition: ADMITTED INPATIENT 09 Certified Medical Emergency: Emergent Condition: Fair - Critical Care Note This patient required my direct & personal management of CC.: Yes Total Time (mins): 40 Critical Care Statement: This patient required my direct personal management to treat or rule out processes, the absence of which, could potentiallly result in sudden, clinically significant life or limb threatening deterioration. Attestation - Physician/ BECKY Attestation Patient care was provided by Advanced Practice Provider:: No The physician spent face to face time with patient:: Yes Advanced Practice Provider documentation review:: Supervising physician onsite and consulted in the evaluation and care of this patient. The physician did have a face to face encounter with the patient. This chart was documented by the indicated scribe, (Michelle Hoyos Scribe) and accurately reflects the services I performed and decisions made by me, Murali Infante MD, as attested by the provider's signature.
[2019-07-14] MEDS: NORCO-5 PO PRN (20:00)
[2019-07-14] MEDS ORDERED: AVAPRO PO SCH (21:00)
[2019-07-14] MEDS ORDERED: HUMALOG SUBQ SCH (21:00)
[2019-07-14] MEDS: LASIX IV SCH (21:17)
[2019-07-14] MEDS: CARAFATE PO SCH (21:17)
[2019-07-14] MEDS: HUMULIN R SUBQ SCH (21:17)
[2019-07-14] MEDS: ATIVAN PO SCH (21:17)
[2019-07-14] MEDS: HEPARIN SUBQ SCH (21:17)
[2019-07-14] MEDS: COREG PO SCH (21:17)
--- NOTE | 2019-07-14 21:44 | HISTORY AND PHYSICAL ---
PRIMARY CARE PHYSICIAN: Dr. Georges Patel. CHIEF COMPLAINT: Increased shortness of breath and generalized aches and pains. HISTORY OF PRESENT ILLNESS: Ms. Crespo is a 79-year-old morbidly obese female, who was brought to the ER by family because the patient was complaining of generalized aches and pains, as well as increasing shortness of breath. The patient reports that she hurts all over and states that she feels short of breath. The patient was noted to be in atrial fibrillation with rapid ventricular response upon arrival to the ER. At that time she was given a onetime dose of IV Cardizem. She was also noted to have pulmonary edema on her chest x-ray as well as bilateral pleural effusions. She received 80 mg of IV Lasix as well in the ER. The patient denied having any chest pain, headache, dizziness or recent syncopal episodes. The patient's symptoms started a few days ago and have progressively gotten worse. The patient was scheduled to see her primary care physician today; however, she was told to go straight to the ER, given her symptoms. The patient was recently discharged from [facility] on 06/27/2019, at which time she was admitted for uncontrolled hypertension and a GI bleed. During that hospitalization, she was diagnosed with bilateral renal artery stenosis as well as a Schatzki ring that was dilated. PAST MEDICAL HISTORY: 1. Hypertension. 2. GERD. 3. IBS. 4. Gout. 5. Rheumatoid arthritis. 6. Major depression. 7. Diabetes mellitus type 2. 8. Bilateral renal artery stenosis. 9. Chronic kidney disease stage 3. 10. Obesity. 11. History of Schatzki ring status post dilation. 12. History of GI bleed PAST SURGICAL HISTORY: 1. Appendectomy. 2. Hysterectomy. 3. Cholecystectomy. 4. Tonsillectomy. FAMILY HISTORY: Positive for diabetes, hypertension, CVA and coronary artery disease. SOCIAL HISTORY: The patient lives at home with her family. She denies any tobacco, alcohol or illicit drug use. ALLERGIES: 1. Honey. 2. Peanuts. 3. Shellfish. 4. Aspirin. 5. Codeine. 6. Benadryl. 7. Lidocaine. 8. Demerol. 9. Penicillin. 10. Sulfa drugs. HOME MEDICATIONS: 1. Tylenol 650 mg oral every 6 hours p.r.n. 2. Norvasc 5 mg oral daily. 3. Coreg 12.5 mg oral twice a day. 4. Vitamin B12, 1000 mcg oral daily. 5. Hydralazine 25 mg oral twice a day. 6. Tresiba 28 units subcutaneous at bedtime. 7. Avapro 50 mg oral at bedtime. 8. Ativan 0.5 mg oral twice a day. 9. Prilosec 40 mg p.o. daily. 10. Carafate 1 g oral 4 times a day. 11. Viibryd 20 mg oral daily. REVIEW OF SYSTEMS: A 12-point review of systems has been performed. Please refer to the history of present illness for pertinent positives and negatives. PHYSICAL EXAMINATION: VITAL SIGNS: Temperature 97.9 degrees, blood pressure 123/82, heart rate 102, respirations 19, O2 saturation 99% on 2 L nasal cannula. GENERAL: This is an overweight female, lying on the stretcher in no acute distress. SKIN: No rashes. No lesions. Normal capillary refill. HEENT: Normocephalic, atraumatic. Pupils equal, reactive to light and accommodation. Trachea is midline. NECK: Supple. No JVD. No lymphadenopathy. HEART: S1, S2 normal. Irregularly irregular rhythm. LUNGS: Coarse breath sounds bilaterally. Diminished breath sounds at the bases. Positive for crackles. EXTREMITIES: Edema 1+ in the lower extremities. No calf tenderness. Peripheral pulses palpable. NEUROLOGIC: The patient is alert and oriented x4. No focal neurologic deficits noted. Cranial nerves 2-12 intact. LABORATORY DATA: White blood cell count 6.4, hemoglobin 10, hematocrit 31, platelets 175,000. INR 1. Sodium 137, potassium 4.5, chloride 101, CO2 is 21, BUN 24, creatinine 1.3, glucose 154, magnesium 2, AST 26, ALT 50, alkaline phosphatase 244. Troponin less than 0.0. ProBNP 5000. Albumin 3.4. VQ scan: Low probability for PE. DIAGNOSTIC DATA: Chest x-ray shows bilateral pleural effusions and pulmonary edema. EKG shows atrial fibrillation with RVR, with a rate of 127. ASSESSMENT AND PLAN: 1. Acute congestive heart failure exacerbation, with preserved ejection fraction. The patient's ejection fraction from 2 weeks ago is noted to be 60%. We will start the patient on diuretic therapy. We will monitor her intake and output closely. We will also have to monitor her renal function. We will consult with the field talent qualification specialist for further recommendations. 2. New onset atrial fibrillation. The patient received a dose of Cardizem in the emergency room. We will continue on Coreg at this time. We will defer to the field talent qualification specialist regarding anticoagulation initiation. 3. Rheumatoid arthritis. Aware. 4. Hypertension. Continue on the current antihypertensive regimen. 5. Diabetes mellitus type 2. We will start the patient on sliding scale insulin. 6. Chronic kidney disease stage 3. Stable. We will monitor the patient's renal function closely while receiving diuretic therapy. 7. Gastroesophageal reflux disease. Continue on Prilosec. 8. Bilateral renal artery stenosis. Aware. 9. Deep venous thrombosis prophylaxis. We will start the patient on heparin. cc: Inna Sofia MD MTDD
[2019-07-15] MEDS: NORCO-5 PO PRN ×4 (00:30→20:34)
--- NOTE | 2019-07-15 02:30 | EKG Report ---
Test Performed on : 07/15/2019 02:20:27 AM Test Reason : AFib to SR Blood Pressure : / mmHG Vent. Rate : 069 BPM Atrial Rate : 069 BPM P-R Int : 146 ms QRS Dur : 086 ms QT Int : 384 ms P-R-T Axes : 062 041 071 degrees QTc Int : 411 ms Sinus rhythm. with premature atrial complexes. Otherwise normal ECG When compared with ECG of 14-JUL-2019 14:10, (Unconfirmed) premature ventricular complexes. are no longer present premature atrial complexes. are now present Unconfirmed Result
[2019-07-15 05:54] LABS: BASO# 0.02 X1000 (0.0-0.2); BASO% 0.3 % (0.0-0.8); EOS# 0.13 X1000 (0.0-0.7); EOS% 2.2 % (0.0-10.0); HEMATOCRIT 29.3 % (37.0-47.0); HEMOGLOBIN 9.5 g/dL (12.0-16.0); LYMPH# 0.45 X1000 (1.2-3.4); LYMPH% 7.8 % (20.5-51.1); MCH 28.9 PG (27-31); MCHC 32.4 g/dL (33-37); MCV 89.1 FL (81-99); MONO% 8.6 % (1.7-9.3); MPV 10.3 FL (7.4-10.4); NEUT% 81.1 % (42.2-75.2); PLT 220 X1000 (130-400); RBC 3.29 XMIL (4.2-5.4); RDW 13.3 % (11.5-14.5)
[2019-07-15] MEDS: PRILOSEC PO SCH (06:04)
[2019-07-15] MEDS: HUMULIN R SUBQ SCH ×4 (06:05→21:52)
[2019-07-15 06:39] LABS: ALB/GLOB RATIO 1.4; ALBUMIN 3.3 g/dL (3.5-5.0); CALCIUM 8.1 mg/dL (8.8-10.2); CREATININE 1.6 mg/dL (0.5-0.9); MAGNESIUM 1.9 mg/dL (1.5-2.7); POTASSIUM 3.8 mmol/L (3.5-5.1); TOTAL BILIRUBIN 0.43 mg/dL (0.20-1.00); TOTAL PROTEIN 5.7 g/dL (6.3-8.3)
--- NOTE | 2019-07-15 07:30 | EKG Report ---
Test Performed on : 07/15/2019 06:27:14 AM Test Reason : afib Blood Pressure : / mmHG Vent. Rate : 071 BPM Atrial Rate : 071 BPM P-R Int : 154 ms QRS Dur : 088 ms QT Int : 406 ms P-R-T Axes : 078 063 080 degrees QTc Int : 441 ms Sinus rhythm. with premature atrial complexes. Otherwise normal ECG When compared with ECG of 15-JUL-2019 02:20, (Unconfirmed) No significant change was found Unconfirmed Result
--- NOTE | 2019-07-15 07:55 | Diag Imaging Result Doc PS360 ---
CHEST-PORTABLE - 07/15/2019 INDICATION: afib, pl effussions COMPARISON: 07/14/2019 FINDINGS: Lung volume to lower. Otherwise stable diffuse bilateral interstitial pulmonary edema. Stable cardiomegaly. No large pleural effusion. IMPRESSION: Lower lung volumes, otherwise no change from prior. Electronically signed by Berry Payton 07/15/2019 7:52 AM
[2019-07-15] MEDS: ATIVAN PO SCH ×2 (09:12→20:08)
[2019-07-15] MEDS: CARAFATE PO SCH ×4 (09:12→20:08)
[2019-07-15] MEDS: HEPARIN SUBQ SCH ×2 (10:12→20:07)
[2019-07-15] MEDS: COREG PO SCH ×2 (10:13→20:08)
[2019-07-15] MEDS: NORVASC PO SCH (10:13)
[2019-07-15] MEDS: VIIBRYD PO SCH (10:13)
[2019-07-15] MEDS: LASIX IV SCH ×2 (10:13→20:08)
[2019-07-15 12:55] LABS: IRON SATURATION 6 %; TIBC 300 ug/dL; TOTAL IRON 19 ug/dL (49-151); UNBOUND IRON 281 ug/dL (112-346)
[2019-07-15 15:24] LABS: URINE SOURCE CATH
[2019-07-15 15:35] LABS: BILIRUBIN URINE NEGATIVE (NEGATIVE); BLOOD URINE SMALL (NEGATIVE); COLOR YELLOW; GLUCOSE URINE NEGATIVE (NEGATIVE); KETONE URINE NEGATIVE (NEGATIVE); LEUKOCYTES URINE NEGATIVE (NEGATIVE); NITRITE URINE NEGATIVE (NEGATIVE); PROTEIN URINE TRACE mg/dL (NEGATIVE); SP GRAVITY URINE 1.008; TURBIDITY URINE CLEAR (CLEAR); UROBILINOGEN URINE NORMAL (NORMAL)
[2019-07-15 15:36] LABS: UR EPITHELIAL CELLS <10 /HPF (<10); URINE BACTERIA NEGATIVE /HPF; URINE RBC <10 /HPF (<10); URINE WBC <10 /HPF (<10)
[2019-07-15 15:44] LABS: AMYLASE 74 U/L (20-200); LIPASE 172 U/L (13-60)
[2019-07-15 15:50] LABS: UR PROT RANDOM 20.5 mg/dL
--- NOTE | 2019-07-15 17:41 | Diag Imaging Result Doc PS360 ---
EXAM: CT THORAX/ABDOMEN W/O CONTRAST INDICATION: abnormal chest X Ray/ elevated alk phos TECHNIQUE: This exam was performed using automated exposure control, adjustment of mA or kV according to patient size, and/or use of iterative reconstruction technique. COMPARISON: CT abdomen and pelvis dated 09/03/2011. No prior dedicated CT chest is available for comparison. FINDINGS: CHEST: There are small bilateral pleural effusions and there is adjacent mild bibasilar atelectasis. There is mild interstitial thickening at the lung bases suggesting mild edema. There is no cardiomegaly. There is no evidence of significant mediastinal or hilar lymphadenopathy. There are degenerative changes involving the thoracic spine. There is no evidence of acute osseous abnormality. ABDOMEN: There has been a prior cholecystectomy. There is no evidence of biliary dilatation. The liver, spleen, pancreas, and adrenal glands are grossly unremarkable. There is a small cyst at the anterior aspect of the right kidney that can also be seen on the prior study. Both kidneys exhibit a lobulated contour that is stable indicating persistent lobulations or possibly renal cortical scarring. The visualized abdominal segments of the GI tract are grossly unremarkable. There is no evidence of acute osseous abnormality. IMPRESSION: 1.Small bilateral pleural effusions and bibasilar atelectasis. 2.Mild interstitial thickening at the lung bases suggesting mild edema. 3.Other incidental/nonacute findings detailed above. Electronically signed by Praveen Balbuena 07/15/2019 5:39 PM
[2019-07-15] MEDS: ZOFRAN IV PRN (18:04)
--- NOTE | 2019-07-15 19:08 | PROGRESS NOTE ---
DATE: 07/15/2019 SUBJECTIVE: The patient complains of shortness of breath and generalized pain. OBJECTIVE: Vital Signs: Temperature 97.9 degrees, blood pressure 122/61, heart rate 87, respirations 16, and O2 saturation is 91% on 2 liters nasal cannula. Urine output 1 liter. General: This is a morbidly obese female lying in bed in no acute distress. Heart: S1 and S2 normal. Regular rate and rhythm. Lungs: Coarse breath sounds bilaterally. Abdomen: Positive bowel sounds. Soft, obese, nontender. Extremities: There is 1+ edema bilaterally. Neurologic: The patient is alert and oriented x3. She is very hard of hearing. LABORATORY DATA: White blood cell count 5.8, hemoglobin 9.5, hematocrit 29, platelets 220,000. Sodium 137, potassium 3.8, chloride 99, CO2 of 23, BUN 25, creatinine 1.6, glucose 113. TSH 4.24. CRP 145. ASSESSMENT AND PLAN: 1. Acute hypoxemic respiratory failure. Continue to treat the volume issues. Continue with supplemental oxygen. 2. Acute pulmonary edema/diastolic CHF. The patient is currently on diuretic therapy. Cardiology is following. 3. Acute kidney injury on chronic kidney disease stage 3. The patient's BUN and creatinine are elevated above her baseline. However, the patient is receiving diuretic therapy. We will continue to monitor the patient closely. 4. Hypertension. Continue on the current antihypertensive regimen. 5. Paroxysmal atrial fibrillation. The patient is currently in sinus rhythm. Continue on Coreg. Cardiology is following. 6. Diabetes mellitus type 2. Continue on sliding scale insulin. 7. Bilateral renal artery stenosis. Aware. 8. Rheumatoid arthritis. Aware. The patient reports that she is not followed by a cloth drier at this time. 9. Gastroesophageal reflux disease. Continue on Prilosec. 10. Iron deficiency anemia. We will start the patient on iron supplementation. 11. Deep vein thrombosis prophylaxis. Continue on heparin. cc: Inna Sofia MD MTDD
[2019-07-15] MEDS: ICAR-C PO SCH (20:08)
--- NOTE | 2019-07-15 20:27 | CARDIOLOGY CONSULTATION ---
DATE: 07/15/2019 CONSULTATION REQUESTED BY: Hospitalist. REASON FOR CONSULTATION: Atrial fibrillation with rapid response. HISTORY: Ms. Crespo is a 79-year-old female normally followed by Dr. Georges Patel. She presented to the emergency room on the day of admission, which is 07/14/2019, with complaints that she was feeling weak, having pain in the neck and lower back and generalized pains that had been going on for a few days. She had not noticed any fever or chills. Upon initial encounter, they did a chest x-ray that shows pulmonary edema, cardiomegaly and pleural effusions. A proBNP level was found at 5990 pg/mL. The EKG showed atrial fibrillation with rapid response and no ischemic ST-T changes. The patient has been admitted and put on some beta marquise and diuretics as well as given a dose of Cardizem. She did convert to sinus rhythm. However, she has been having short runs of atrial fibrillation. Of note, there are 4 tests that are abnormal in her case. Her alkaline phosphatase upon presentation was 244 units/L. Today, it is down to 204. ALT was 50 and today it is down to 39. Bilirubin is normal. Her C-reactive protein was elevated at 145.66 mg/L. Sedimentation rate was up to 68 mm/hour. The patient is sitting in chair. The patient denies having any edema of the lower extremities. Denies vomiting. Her past history is positive for hypertension. She was recently admitted to the hospital on June 23 because her blood pressure was elevated. At that time, she was found to have high blood pressure and also a rectal bleed. She underwent a colonoscopy which showed mild nonbleeding diverticulosis in the colon. Then, they did an upper endoscopy on June 24 and they found that there was some stricture of the esophagus and they performed dilatation via a guidewire. An echocardiogram that was done on June 25 showed normal left ventricular systolic function. The patient received an ultrasound of the kidney arteries that showed elevated resistive indices and renal artery ratio bilaterally suggesting renal artery stenosis. She has been followed by the renal service. PAST MEDICAL HISTORY: She has irritable bowel syndrome. Gout. She has a previous diagnosis of rheumatoid arthritis, depression, diabetes mellitus type 2. She does have chronic kidney disease stage 3. She has obesity. She has a remote diagnosis of deep venous thrombosis. PAST SURGICAL HISTORY: Positive for appendectomy, hysterectomy, cholecystectomy, and tonsillectomy. SOCIAL HISTORY: She is a . She lives with her family. Not a smoker or drinker. She is retired. The patient had 2 children. REVIEW OF SYSTEMS: She is very hard of hearing. She has some difficulty getting around because of shortness of breath and fatigue. PHYSICAL EXAMINATION: Vital signs: Blood pressure 111/75, temperature 97.5 degrees, pulse 84, respirations 18. General: She is awake, alert, oriented, in no distress. HEENT: Unremarkable. Chest: Sounds fairly clear to auscultation and percussion. Heart: Sounds are regular rhythmic with short burst of tachycardia and irregular heartbeat. Abdomen: Obese, nontender. Extremities: Show good pulses. No peripheral edema. Neurologic: Nonfocal. Moves 4 extremities. IMPRESSION: 1. Patient who presents with atrial fibrillation with rapid response. 2. The patient seems to have systemic inflammatory syndrome. 3. Chronic kidney disease. 4. Diastolic heart failure, probably acute on chronic. 5. Long-term history of hypertension. 6. Prior history of rheumatoid arthritis. 7. Abnormal liver function tests manifested by elevated alkaline phosphatase and ALT. 8. Anemia of chronic disease. RECOMMENDATION: I would suggest to do a CT scan of the thorax and abdomen without contrast to evaluate the lungs and also the liver. We will check a PTH. We will consider doing a limited echocardiogram to make sure that there is no pericardial collection. Further advice will be forthcoming. Thank you for the opportunity to participate in her evaluation. cc: MD SOLOMON Ledesma
[2019-07-16 06:16] LABS: HEMATOCRIT 27.6 % (37.0-47.0); HEMOGLOBIN 9.1 g/dL (12.0-16.0); MCH 29.6 PG (27-31); MCV 89.9 FL (81-99); RBC 3.07 XMIL (4.2-5.4); RDW 13.4 % (11.5-14.5); WBC 4.08 X1000 (4.8-10.8)
[2019-07-16] MEDS: PRILOSEC PO SCH (06:20)
[2019-07-16] MEDS: NORCO-5 PO PRN ×3 (06:24→23:47)
[2019-07-16] MEDS: ZOFRAN IV PRN (06:24)
[2019-07-16 06:34] LABS: ALBUMIN 3.3 g/dL (3.5-5.0); CREATININE 2.4 mg/dL (0.5-0.9); POTASSIUM 3.9 mmol/L (3.5-5.1)
[2019-07-16] MEDS: HUMULIN R SUBQ SCH ×3 (07:06→17:45)
--- NOTE | 2019-07-16 07:50 | EKG Report ---
Test Performed on : 07/16/2019 07:05:23 AM Test Reason : afib Blood Pressure : / mmHG Vent. Rate : 068 BPM Atrial Rate : 068 BPM P-R Int : 158 ms QRS Dur : 092 ms QT Int : 408 ms P-R-T Axes : 048 071 067 degrees QTc Int : 433 ms Sinus rhythm. with premature atrial complexes. Otherwise normal ECG When compared with ECG of 15-JUL-2019 06:27, No significant change was found Unconfirmed Result
[2019-07-16] MEDS: NORVASC PO SCH (09:13)
[2019-07-16] MEDS: VIIBRYD PO SCH (09:13)
[2019-07-16] MEDS: ATIVAN PO SCH ×2 (09:13→20:48)
[2019-07-16] MEDS: ICAR-C PO SCH ×2 (09:13→20:30)
[2019-07-16] MEDS: HEPARIN SUBQ SCH ×2 (09:14→20:30)
[2019-07-16] MEDS: COREG PO SCH ×3 (09:14→20:31)
[2019-07-16] MEDS: CARAFATE PO SCH ×3 (09:14→17:47)
--- NOTE | 2019-07-16 09:52 | CARDIOLOGY PROGRESS NOTE ---
DATE: 07/16/2019 CHIEF COMPLAINT: Palpitations, irregular heartbeat, malaise, and weakness. Neck pain. SUBJECTIVE: Ms. Crespo is still feeling poorly. She is somewhat nauseous today. She denies having chest pain. She does have general malaise. Of note, her alkaline phosphatase was found to be elevated and also her lipase is elevated. Her PTH is also elevated at 96; normal is up to 65. This may be a jelena of chronic kidney disease. Phosphorous is also elevated. OBJECTIVE: Vital Signs: Blood pressure is 152/72, temperature 98.6, pulse 65, and respirations 17. General: She is awake, alert, oriented, and in no distress. HEENT: Unremarkable. Chest: Sounds clear to auscultation and percussion. Heart: Sounds regular and rhythmic. I do not hear a gallop or murmur. Abdomen: Nontender. Extremities: The extremities show no edema. Neurological: Follows commands and moves all extremities. The patient is very hard of hearing. The patient has some shakiness. IMPRESSION: 1. Patient who presented with atrial fibrillation with rapid response in the midst of feeling poorly with pain in the neck area and pain in the back. 2. She seems to have a systemic inflammatory response. Her atrial fibrillation has resolved. 3. Evidence of chronic kidney disease. 4. Suspected diastolic heart failure, probably acute on chronic. 5. History of hypertension. 6. Reported prior history of rheumatoid arthritis. RECOMMENDATIONS: At this time I would suggest to request the opinion of Dr. Ramsey regarding the elevated alkaline phosphatase as well as the elevated lipase in the midst of systemic inflammation. Cardiac-jensen I really do not have any further recommendations. She is in sinus rhythm. Her blood pressure may be best managed by the nephrology team since the patient is already showing signs of chronic kidney disease including elevation of creatinine, elevation of phosphorous, and elevation of PTH. We will follow her along. cc: Winston Cedeno MD
[2019-07-16] MEDS: TYLENOL PO PRN (13:31)
--- NOTE | 2019-07-16 15:46 | Diag Imaging Result Doc PS360 ---
EXAM: US RENAL 2 (RETROPER) COMPLETE INDICATION: decreased renal function TECHNIQUE: COMPARISON: 06/25/2019 FINDINGS: There is a stable nonobstructing intrarenal stone on the right. There is a stable 2 cm simple appearing renal cysts on the right as well. The kidneys are grossly normal in echotexture, otherwise. The right kidney measures 10.1 cm and the left kidney measures 12 cm in the greatest longitudinal axes. Right renal cortex measures 1 cm and the left renal cortex measures 0.7 cm in thickness. The urinary bladder is partially distended and is grossly unremarkable, otherwise. IMPRESSION: Stable small renal stone and cyst associated with the right kidney. Unremarkable renal ultrasound, otherwise. Electronically signed by Praveen Balbuena 07/16/2019 3:43 PM
--- NOTE | 2019-07-16 16:29 | EKG Report ---
Test Performed on : 07/16/2019 4:22:23 PM Test Reason : chest pressure Blood Pressure : / mmHG Vent. Rate : 103 BPM Atrial Rate : 104 BPM P-R Int : 000 ms QRS Dur : 088 ms QT Int : 342 ms P-R-T Axes : 000 033 053 degrees QTc Int : 448 ms Atrial fibrillation. with rapid ventricular response. Abnormal ECG When compared with ECG of 16-JUL-2019 07:05, (Unconfirmed) Atrial fibrillation. has replaced Sinus rhythm. Vent. rate has increased BY 35 BPM Unconfirmed Result
[2019-07-16] MEDS: CARAFATE LIQUID PO SCH (20:48)
--- NOTE | 2019-07-16 21:26 | PROGRESS NOTE ---
DATE: 07/16/2019 SUBJECTIVE: The patient is resting comfortably. She states that she felt nauseous this morning and required some Zofran. OBJECTIVE: Vital Signs: Temperature 97.8 degrees, blood pressure 130/104, heart rate 116, respirations 18, O2 saturation 98% on 3 L nasal cannula. Intake 100, output 1.8 L. General: This is a morbidly obese female lying in bed in no acute distress. Heart: S1, S2 normal. Tachycardic. Lungs: Diminished breath sounds at the bases. No crackles or wheezing. Abdomen: Positive bowel sounds. Soft, obese, nontender. Extremities: No edema. No cyanosis. Neurologic: The patient is alert and oriented x4. LABS: White blood cell count 4, hemoglobin 9.1, hematocrit 27, platelets 225,000. Sodium 130, potassium 3.9, chloride 95, CO2 24, BUN 35, creatinine 2.4, glucose 89. ASSESSMENT AND PLAN: 1. Acute hypoxemic respiratory failure. The patient's diuretic therapy is on hold at this time. Continue to monitor closely. 2. Acute pulmonary edema with pleural effusions. We will monitor off of diuretic therapy due to the patient's renal insufficiency. 3. Acute kidney injury on chronic kidney disease stage 3. The patient's BUN and creatinine are elevated above the patient's baseline. The diuretic therapy is on hold at this time. We will also consult with the lead refinery supervisor. 4. Paroxysmal atrial fibrillation. Continue on Coreg. 5. Hypertension. Continue on the current antihypertensive regimen. 6. Bilateral renal artery stenosis. Aware. 7. Diabetes mellitus type 2. Continue on sliding scale insulin. 8. Morbid obesity. Aware. 9. Rheumatoid arthritis. Aware. 10. Iron deficiency anemia. Continue on iron supplementation. 11. Gastroesophageal reflux disease. Continue on Prilosec. 12. Deep vein thrombosis prophylaxis. Continue on heparin. 13. We will consult physical therapy to mobilize the patient. cc: Inna Sofia MD [facility]
--- NOTE | 2019-07-16 21:54 | NEPHROLOGY CONSULTATION ---
DATE: 07/16/2019 REASON FOR ADMISSION: Increased work of breathing with generalized aches and pains. REASON FOR CONSULT: Acute kidney injury on chronic kidney disease, stage 3-B. CONSULTING PHYSICIAN: Dr. Inna Sofia. HISTORY OF PRESENT ILLNESS: Ms. Crespo is a 79-year-old white female who had been seen by our practice on her previous hospitalization in June for hypertension. The patient states that she was discharged on multiple medicine changes for her blood pressure. She had followed up with her primary care, Dr. Georges Patel, at which time was found to have a low blood pressure, and he had adjusted some of these medications. The patient reported that she was hurting all over, had increased work of breathing. She was presented to the emergency room at which time she was found to be in atrial fibrillation with rapid ventricular response. She was given a one time dose of IV Cardizem. Chest x-ray showed pulmonary edema with bilateral pleural effusions. She received 80 mg of IV Lasix during that period of time. It was also noted that her creatinine was above her baseline, and found this morning to be 2.4, previous baseline of 1.4 to 1.8. She currently complains of increased work of breathing with any exertion. She denies any chest pain. Denies any headache, fever, chills. No nausea or vomiting. No lower extremity swelling. Previous admission on 06/23/2019 with a discharge on 06/27/2019. During that period of time, she was found to have hypertension uncontrolled, GI bleed, diagnosed with bilateral renal artery stenosis as well as Schatzki's ring, with dilatation. PAST MEDICAL HISTORY: 1. Chronic kidney disease stage 3, baseline creatinine 1.6 to 1.8. 2. Hypertension. 3. GERD. 4. Irritable bowel syndrome. 5. Gout. 6. Rheumatoid arthritis. 7. Major depression. 8. Diabetes mellitus type 2. 9. Bilateral renal artery stenosis. 10. Obesity. 11. Schatzki's ring, status post dilatation on 06/24/2019. 12. History of GI bleed, diagnosed on 06/23/2019, with a colonoscopy. PAST SURGICAL HISTORY: 1. Appendectomy. 2. Hysterectomy. 3. Cholecystectomy. 4. Tonsillectomy. FAMILY HISTORY: Positive for diabetes, hypertension, CVA, and coronary artery disease. SOCIAL HISTORY: She lives at home with her family. Her son is at her bedside. She denies tobacco, alcohol, or illicit drug use. CURRENT ALLERGIES: Listed as honey, peanuts, shellfish, aspirin, codeine, diphenhydramine hydrochloride, lidocaine, Demerol, penicillin, and sulfa drugs. HOME MEDICATIONS: 1. Tylenol. 2. Norvasc. 3. Coreg. 4. Vitamin B12. 5. Hydralazine. 6. Tresiba. 7. Avapro. 8. Ativan. 9. Prilosec. 10. Carafate. 11. Viibryd. REVIEW OF SYSTEMS: Review of systems x10 with pertinent positives listed above in the HPI. VITAL SIGNS: The patient's most recent vital signs: Temperature 98.8 degrees, blood pressure 133/98, heart rate 116, respirations are 22. They are currently irregular. She appears to be in atrial fibrillation on the telemetry, reviewed at bedside. She is on 2 L nasal cannula. Last recorded saturation 98%. She has had 100 mL in, 1850 out in the last 24 hours, though she states that she has had her Loco catheter removed and she has been voiding. This has not been recorded. She also stated that she has had approximately 500 mL in between breakfast and lunch, and is currently drinking a large cup of coffee. LABS: Sodium is 130, potassium 3.9, chloride 95, CO2 24, BUN 35, creatinine 2.4, glucose is 89. Her anion gap is 11, calcium 8, phosphorus 5, albumin 3.3. White count 4.08, hemoglobin 9.1, hematocrit 27.6, platelet count 225,000. TSH on admission labs is 4.24, PTH of 96. The patient had an anemia study, indicating a total iron of 19, total saturation of 6%, ferritin of 110. Blood cultures are currently pending. Urine electrolytes indicate a fractionated urea score of 34.79. PHYSICAL EXAMINATION: General: This is a 79-year-old, overweight white female. She is resting in bed. Head of the bed is elevated. She appears in no acute distress. Skin: Warm and dry. HEENT: Normocephalic, atraumatic. Conjunctiva is pale. She has CELINE. Mucous membranes are moist. Neck: Supple. Trachea midline. No JVD in the upright position. No hepatic jugular reflex present. Cardiovascular: Irregularly irregular rate and rhythm. She has heart rate between 86 and 112, while evaluating her telemetry at the bedside. Lungs: Have coarse breath sounds bilateral. Clear to auscultation anterior. No crackles or wheezes present. Remains on O2 support. Abdomen: Large, nontender. Positive bowel sounds. Genitourinary: Not inspected. Patient has been voiding. Extremities: She has trace pretibial edema. No clubbing or cyanosis. Neurological: She is alert and oriented x4. Able to assist with exam. ASSESSMENT AND PLAN: 1. Acute kidney injury on chronic kidney disease stage 3B. This appears to be multifactorial. Patient does have a fractionated urea score 34.79%. This is in the context of large doses of Lasix. Her Lasix has been held this a.m. She continues to drink, though according to her family, she has not consumed over a liter in 24 hours during her hospital stay. The patient has also had a V/Q scan during her hospital stay. In this context, she has had adequate urine output documented. She appears to be volume depleted with her Lasix currently on hold. We are rechecking a renal ultrasound secondary to a CT of the abdomen and pelvis indicating bilateral kidneys with lobulated contours, stable, though persistent lobulation in context with possible renal cortical scarring. We will have this repeated today or in the a.m. 2. Electrolytes. Patient has hyponatremia, sodium of 130. She does continue on Viibryd which, in this context, can cause syndrome of inappropriate antidiuretic hormone. We will continue to monitor. 3. Acid-base balance. This is stable. 4. Anemia. Patient has iron deficiency. She has been started back on her Icar C per Primary Care. May possibly require iron infusions during her hospital stay. We will defer to the primary care team. 5. Atrial fibrillation in the context of rapid ventricular response. The patient is currently on Coreg, followed by Primary Care and Cardiology. 6. Known renal artery stenosis. We are aware. This has been discussed with Dr. Pedroza in the past for selective arteriography on an outpatient basis. 7. Elevated alkaline phosphatase and lipase. Dr. Ramsey has been consulted. I would like to thank you for allowing us to follow with this patient. Dictated by LAURITA England for Etienne Ball MD cc: LAURITA England MD
[2019-07-17] MEDS: HUMULIN R SUBQ SCH ×5 (00:21→21:28)
[2019-07-17] MEDS: PRILOSEC PO SCH (06:16)
[2019-07-17] MEDS: NORCO-5 PO PRN (06:17)
[2019-07-17 06:50] LABS: ALB/GLOB RATIO 1.4; ALBUMIN 3.4 g/dL (3.5-5.0); CALCIUM 8.7 mg/dL (8.8-10.2); CREATININE 1.7 mg/dL (0.5-0.9); DIRECT BILIRUBIN 0.1 mg/dL (0.00-0.20); PHOSPHORUS 4.1 mg/dL (2.7-4.5); TOTAL BILIRUBIN 0.28 mg/dL (0.20-1.00); TOTAL PROTEIN 5.9 g/dL (6.3-8.3)
[2019-07-17 07:15] LABS: HEMATOCRIT 30.3 % (37.0-47.0); MCH 29.2 PG (27-31); MCV 88.6 FL (81-99); MPV 9.3 FL (7.4-10.4); RBC 3.42 XMIL (4.2-5.4); RDW 13.1 % (11.5-14.5); WBC 3.43 X1000 (4.8-10.8)
--- NOTE | 2019-07-17 07:45 | Diag Imaging Result Doc PS360 ---
EXAM: CHEST-PORTABLE INDICATION: dyspnea TECHNIQUE: One view COMPARISON: 07/15/2019 FINDINGS: Interstitial edema appears to have slightly improved during the interval. No new consolidation is identified. Cardiac silhouette is stable. IMPRESSION: Interval slight improvement. Electronically signed by Praveen Balbuena 07/17/2019 7:43 AM
[2019-07-17] MEDS: VIIBRYD PO SCH (08:45)
[2019-07-17] MEDS: ATIVAN PO SCH ×3 (08:45→21:17)
[2019-07-17] MEDS: NORVASC PO SCH (08:45)
[2019-07-17] MEDS: CARAFATE LIQUID PO SCH ×4 (08:45→21:17)
[2019-07-17] MEDS: COREG PO SCH (08:45)
[2019-07-17] MEDS: HEPARIN SUBQ SCH ×2 (08:45→21:16)
[2019-07-17] MEDS ORDERED: SENOKOT PO ONE (13:24)
--- NOTE | 2019-07-17 14:53 | PROGRESS NOTE ---
DATE: 07/17/2019 SUBJECTIVE: The patient is resting comfortably. She states that she still feels short of breath at rest. OBJECTIVE: Vital Signs: Temperature 98.1 degrees, blood pressure 153/87, heart rate 90, respirations 21, O2 saturation 98% on 3 L nasal cannula, intake 515, output 900. General: This is a morbidly obese female lying in bed in no acute distress. Heart: S1, S2. Regular rate and rhythm. Lungs: Diminished breath sounds at the bases. No wheezing, no rales. Abdomen: Positive bowel sounds. Soft, obese, nontender, nondistended. Extremities: No edema, no cyanosis. Neuro: The patient is alert and oriented x4. She is very hard of hearing. LABS: White blood cell count 3.4, hemoglobin 10, hematocrit 30, platelets 298,000. Sodium 136, potassium 4, chloride 99, CO2 23, BUN 29, creatinine 1.7, glucose 115, BUN 29, creatinine 1.7. Chest x-ray shows mild improvement. ASSESSMENT AND PLAN: 1. Acute hypoxemic respiratory failure. The patient reports that she does not use supplemental oxygen at home. Will continue to try and wean the patient off of her supplemental oxygen. 2. Pulmonary edema with pleural effusions. Slightly improved. 3. Acute kidney injury on chronic kidney disease stage 3. Slowly improving. 4. Paroxysmal atrial fibrillation. Continue on Coreg. 5. Hypertension. Continue on the current antihypertensive regimen. 6. Bilateral renal artery stenosis. Aware. 7. Morbid obesity. Aware. 8. Diabetes mellitus type 2. Continue on sliding scale insulin. 9. Rheumatoid arthritis. Aware. 10. Gastroesophageal reflux disease. Continue on Prilosec. 11. Iron deficiency anemia. The hemoglobin and hematocrit are stable. 12. Deep vein thrombosis prophylaxis. Continue on heparin. 13. Continue with physical therapy. cc: Inna Sofia MD MTDD
[2019-07-17] MEDS: CARDIZEM PO SCH ×2 (17:23→21:23)
[2019-07-17] MEDS: LOPRESSOR PO SCH ×2 (17:24→23:47)
--- NOTE | 2019-07-17 18:04 | GASTROENTEROLOGY CONSULTATION ---
DATE: 07/17/2019 REASON FOR CONSULTATION: Elevated liver function tests. HISTORY OF PRESENT ILLNESS: This is a 79-year-old female who was brought into the emergency room for aches, pains and shortness of breath. The patient was recently in the hospital when we saw her on 06/24/2019. She had an EGD and colonoscopy. EGD was done due to complaints of dysphagia. Findings showed Schatzki's ring with dilation performed. She had been started on Prilosec and Carafate. Patient states her dysphagia has improved. She had a colonoscopy that showed diverticulosis but no evidence of colon polyps. At her last hospitalization her liver function tests were normal. Last noted labs from her previous hospitalization on 06/20/2019 and 06/26/2019 showed normal liver function tests. On admission her liver function tests show total bilirubin 0.54, AST 26, ALT 50, alkaline phosphatase 244. On July 15 her AST was 14, ALT 39, alkaline phosphatase 204, GGT was 101, patient had reported some shortness of breath and cough with sputum production. She has not really reported abdominal pain but had some reported nausea. PAST MEDICAL HISTORY: Hypertension, GERD, irritable bowel syndrome, history of gout, rheumatoid arthritis. Depression, diabetes type 2. Renal artery stenosis. Chronic kidney disease. PAST SURGICAL HISTORY: Appendectomy, hysterectomy, cholecystectomy, tonsillectomy. Recent EGD and colonoscopy on 06/24/2019 showing Schatzki's ring with esophageal dilation and diverticulosis. ALLERGIES: Honey, shortness of breath. Peanuts, shortness of breath. Shellfish, shortness of breath. Aspirin nausea. Codeine itching. Benadryl nausea and vomiting, lidocaine itching, Demerol flushing, penicillin shortness of breath. Darvon flushing, sulfonamide antibiotics flushing. HOME MEDICATIONS: Norvasc 5 mg daily. Coreg 12.5 mg twice a day. Vitamin B12, 1000 mcg as needed. Apresoline 25 mg twice a day. Insulin 20 units every night. Irbesartan 50 mg every night. Ativan 0.5 mg twice a day, Prilosec 40 mg daily, Carafate 1 gram 4 times a day. Viibryd 20 mg daily. SOCIAL HISTORY: Lives at home. Denies tobacco or alcohol use. REVIEW OF SYSTEMS: Per history of present illness. PHYSICAL EXAMINATION: Vital Signs: Temperature 98.1 degrees, pulse 90, respirations 21, blood pressure 153/87. General: Patient is awake and alert. She has oxygen in place by nasal cannula. Cardiovascular: Regular rate and rhythm. Respiratory: Lung sounds with some decreased breath sounds. She does report a productive cough. Abdomen: Obese, otherwise nontender, soft, positive bowel sounds. Extremities: No lower extremity edema noted. Neurological: Cranial nerves 2-12 grossly intact. Patient was awake and alert. DIAGNOSTIC RESULTS: LABORATORY: Hematology: WBC 3.43 hemoglobin 10.0, hematocrit 30.3, MCV 88.6, platelets 298,000. Chemistry: Sodium 136, potassium 4.0, chloride 99, CO2 of 23, BUN 29, creatinine 1.7 and glucose 115, calcium 8.7, phosphorus 4.1, total bilirubin 0.28. AST 13, ALT 20, alkaline phosphatase 182. ASSESSMENT AND PLAN: 1. Acute respiratory failure. Patient's respiratory status is improving. She is currently on O2 by nasal cannula.. 2. Pulmonary edema with pleural effusions. 3. Acute kidney injury versus chronic kidney disease. Patient has been seen by Nephrology. 4. Paroxysmal atrial fibrillation. Continue current medications. 5. History of recent admission for possible gastrointestinal bleeding with EGD and colonoscopy done. EGD showed Schatzki's ring with dilation performed and colonoscopy showed diverticulosis. There was no evidence of active bleeding. 6. Elevated liver function tests. Her liver function tests were normal during her previous hospitalization. During this hospitalization over the last several days her liver function tests are improving. Possibility of acute liver injury related to other medical issues. We will continue to follow. Her AST and ALT today are back to normal. Alkaline phosphatase is improving. We will continue to follow during her hospital course. Recommend she follow up with us in the office after discharge. I have discussed this case with Dr. Ramsey. Thank you for this consultation. Dictated by LAURITA Oneal for Chase Ramsey MD cc: LAURITA Dwyer MD [facility]
[2019-07-17] MEDS: DULCOLAX PR SCH ×2 (21:17→21:23)
[2019-07-17] MEDS: MIRALAX PO SCH (21:17)
--- NOTE | 2019-07-17 21:20 | NEPHROLOGY CONSULTATION ---
DATE: 07/17/2019 REASON FOR CONSULTATION: Acute kidney injury. HISTORY OF PRESENT ILLNESS: Ms. Crespo is a 79-year-old white female whom I met during recent hospitalization. She had normal overall kidney function at the time, but hypotension and decompensated heart failure. Outpatient studies suggested possible renal artery stenosis. Blood pressure was managed acceptably well, including an angiotensin receptor marquise, and so she was discharged with plan for followup. She returns to the hospital with worsening shortness of breath and generalized muscle aches, myalgias. She had atrial fibrillation with rapid ventricular response on admission to the emergency room. This was treated with IV diltiazem and she also was treated with IV Lasix. Her initial chest x-ray demonstrated pulmonary edema with effusions. She underwent V/Q scan, which was negative. Her creatinine at baseline was 1.2 to 1.7 as recently as 06/27/2019, 1.3 on presentation, peaked at 2.4 to 1.7 today. She is feeling better, though she still has generalized myalgias. PHYSICAL EXAMINATION: Vital Signs: Blood pressure 151/82, heart rate 91, respirations 15, afebrile. General: No acute distress. Skin: Warm and dry. Neck: Neck veins are not distended. Trachea is midline. Heart: Irregular, but rate controlled. Lungs: Equal. No crackles. Abdomen: Soft, nontender. Bowel sounds present. Extremities: Minimal edema. No clubbing or cyanosis. IMPRESSION: Acute kidney injury overlying chronic kidney disease, stage 3B. She is back to baseline now. Changes were likely related to diuresis. Blood pressure is above target, but acceptable. When otherwise clinically appropriate, I would recommend restarting her angiotensin receptor marquise. Electrolytes/acid base in target. cc: Etienne Ball MD
[2019-07-17] MEDS: TYLENOL PO PRN (23:44)
[2019-07-18] MEDS: CARDIZEM PO SCH ×4 (01:29→20:11)
[2019-07-18] MEDS: PRILOSEC PO SCH (06:14)
[2019-07-18] MEDS: HUMULIN R SUBQ SCH ×4 (06:22→20:17)
[2019-07-18 07:13] LABS: CALCIUM 8.8 mg/dL (8.8-10.2); CREATININE 1.5 mg/dL (0.5-0.9); POTASSIUM 4.1 mmol/L (3.5-5.1)
[2019-07-18 07:17] LABS: ALBUMIN 3.5 g/dL (3.5-5.0); CALCIUM 8.9 mg/dL (8.8-10.2); CREATININE 1.5 mg/dL (0.5-0.9); PHOSPHORUS 3.7 mg/dL (2.7-4.5); POTASSIUM 4.4 mmol/L (3.5-5.1)
--- NOTE | 2019-07-18 07:35 | EKG Report ---
Test Performed on : 07/18/2019 06:42:45 AM Test Reason : afib Blood Pressure : / mmHG Vent. Rate : 087 BPM Atrial Rate : 102 BPM P-R Int : 000 ms QRS Dur : 090 ms QT Int : 356 ms P-R-T Axes : 000 032 051 degrees QTc Int : 428 ms Atrial fibrillation. Cannot rule out Anterior infarct , age undetermined Abnormal ECG When compared with ECG of 16-JUL-2019 16:22, No significant change was found Unconfirmed Result
[2019-07-18] MEDS: ATIVAN PO SCH ×2 (08:36→20:10)
[2019-07-18] MEDS: VIIBRYD PO SCH (08:36)
[2019-07-18] MEDS: CARAFATE LIQUID PO SCH ×4 (08:36→20:10)
[2019-07-18] MEDS: HEPARIN SUBQ SCH ×2 (08:36→20:10)
[2019-07-18] MEDS: LOPRESSOR PO SCH ×3 (08:37→23:45)
[2019-07-18] MEDS: MIRALAX PO SCH ×2 (08:37→20:11)
--- NOTE | 2019-07-18 14:14 | Diag Imaging Result Doc PS360 ---
FLAT/UPRIGHT ABD/1 VIEW CHEST - 07/18/2019 INDICATION: dyspnea/constipation TECHNIQUE: COMPARISON: 07/17/2019 FINDINGS: Lung volumes are much improved. There is significant improvement in the peripheral interstitial opacities suggesting mild fibrosis or pulmonary edema. No dense consolidations. Heart size is borderline enlarged. There are cholecystectomy clips. There is a nonobstructive bowel gas pattern. No free air or abnormal calcifications. IMPRESSION: Improvement in the chest. No acute process in the abdomen. Electronically signed by Berry Payton 07/18/2019 2:12 PM
--- NOTE | 2019-07-18 18:47 | PROGRESS NOTE ---
DATE: 07/18/2019 SUBJECTIVE: The patient states that she feels much better today. She is eating. She does complain of mild nausea in the morning before her meals but that usually resolves. OBJECTIVE: Vital Signs: Temperature 97.6 degrees, blood pressure 152/95, heart rate 95, respirations 20, O2 saturation 98% on 3 L nasal cannula, intake 1.7 L, output 225. General: This is a chronically ill-appearing elderly female lying in bed in no acute distress. Heart: S1, S2. Normal. Regular rate and rhythm. Lungs: Equal air entry bilaterally. No wheezing, no rales. No rhonchi. Abdomen: Positive bowel sounds. Soft, obese, nontender, nondistended. Extremities: No edema, no cyanosis, no calf tenderness. Neuro: The patient is alert and oriented x4. LABS: Sodium 137, potassium 4.1, BUN 24, creatinine 1.5, glucose 127. Abdominal x-ray shows no acute process. ASSESSMENT AND PLAN: 1. Pulmonary edema with pleural effusions. Improved. We will attempt to wean the patient off of supplemental oxygen. 2. Chronic kidney disease stage 3. Stable. 3. Paroxysmal atrial fibrillation. The patient is on Lopressor and Cardizem management as per the counter tacker. 4. Intermittent nausea. Gastroenterology has been consulted. Will await further recommendations. 5. Constipation. Continue with scheduled laxative therapy. 6. Morbid obesity. The patient has been counseled about weight loss and proper diet. 7. Rheumatoid arthritis. The patient will likely need to be referred back to the order filler that she sees in [place]. 8. Iron deficiency anemia. Stable. 9. Bilateral renal artery stenosis. Aware. 10. Deep vein thrombosis prophylaxis. Continue on heparin. 11. Disposition. Hopefully the patient will be able to be discharged the early part of this coming week. Continue with physical therapy. cc: Inna Sofia MD
[2019-07-18] MEDS: DULCOLAX PR SCH (20:11)
[2019-07-18] MEDS: TYLENOL PO PRN (20:11)
[2019-07-19] MEDS: CARDIZEM PO SCH ×4 (02:55→20:47)
[2019-07-19] MEDS: PRILOSEC PO SCH (06:18)
[2019-07-19] MEDS: HUMULIN R SUBQ SCH ×4 (06:19→22:59)
[2019-07-19 07:38] LABS: ALBUMIN 3.5 g/dL (3.5-5.0); CALCIUM 8.6 mg/dL (8.8-10.2); CREATININE 1.3 mg/dL (0.5-0.9); PHOSPHORUS 3.6 mg/dL (2.7-4.5); POTASSIUM 4.1 mmol/L (3.5-5.1)
[2019-07-19] MEDS: LOPRESSOR PO SCH ×3 (08:09→23:53)
[2019-07-19] MEDS: CARAFATE LIQUID PO SCH ×4 (08:10→20:47)
[2019-07-19] MEDS: HEPARIN SUBQ SCH ×2 (08:10→20:45)
[2019-07-19] MEDS: ZOFRAN IV PRN (08:13)
[2019-07-19] MEDS: ATIVAN PO SCH ×2 (08:13→20:44)
[2019-07-19] MEDS: VIIBRYD PO SCH (08:14)
[2019-07-19] MEDS: MIRALAX PO SCH ×2 (08:16→22:59)
[2019-07-19] MEDS: NORCO-5 PO PRN (20:44)
[2019-07-19] MEDS: TRESIBA FLEXTOUCH U-200 SUBQ SCH (20:48)
--- NOTE | 2019-07-19 20:48 | PROGRESS NOTE ---
DATE: 07/19/2019 SUBJECTIVE: The patient complains of persistent nausea first thing in the morning. She states that this has been going on for several weeks. She denies having any abdominal pain and she states that she has had 2 bowel movements so far today. OBJECTIVE: Vital Signs: Temperature 98.1 degrees, blood pressure 131/77, heart rate 86, respirations 18, O2 saturations 95% on room air. General: This is a overweight female sitting in a chair in no acute distress. Heart: S1, S2 normal. Regular rate and rhythm. Lungs: Clear to auscultation bilaterally. Abdomen: Positive bowel sounds. Soft, obese, nontender, nondistended. Extremities: No edema no cyanosis. Neurologic: The patient is alert and oriented x4. LABS: Sodium 141, potassium 4.1, chloride 104, CO2 24, BUN 15, creatinine 1.3, glucose 150. ASSESSMENT AND PLAN: 1. Persistent nausea. We will order a gastric emptying study to be done tomorrow. Will await further recommendations from GI. 2. Pulmonary edema with pleural effusions. Improved. 3. Chronic kidney disease stage 3. Stable. 4. Paroxysmal atrial fibrillation. The patient is currently on Lopressor and Cardizem. Cardiology is following. 5. Morbid obesity. Aware. 6. Rheumatoid arthritis. The patient will need to follow up with her group social worker in [place] for further treatment. 7. Bilateral renal artery stenosis. Aware. 8. Iron-deficiency anemia. Stable. 9. Deep vein thrombosis prophylaxis. Continue on heparin. 10. Insulin dependent diabetes mellitus. We will restart Tresiba. Continue with sliding scale insulin. 11. Disposition. This the patient will be discharged home once she is medically stable. cc: Inna Sofia MD [facility]
[2019-07-19] MEDS ORDERED: INSULIN PEN NEEDLES ONE (20:53)
[2019-07-20] MEDS: CARDIZEM PO SCH ×4 (02:33→21:01)
[2019-07-20] MEDS: HUMULIN R SUBQ SCH ×4 (06:12→21:01)
[2019-07-20] MEDS: PRILOSEC PO SCH (06:12)
[2019-07-20 07:12] LABS: HEMATOCRIT 30.7 % (37.0-47.0); MCH 29.4 PG (27-31); MCHC 32.6 g/dL (33-37); MCV 90.3 FL (81-99); MPV 8.8 FL (7.4-10.4); RBC 3.4 XMIL (4.2-5.4); RDW 13.2 % (11.5-14.5); WBC 4.87 X1000 (4.8-10.8)
[2019-07-20 07:24] LABS: ALBUMIN 3.4 g/dL (3.5-5.0); CALCIUM 8.6 mg/dL (8.8-10.2); CREATININE 1.7 mg/dL (0.5-0.9); POTASSIUM 4.4 mmol/L (3.5-5.1)
[2019-07-20 08:19] LABS: ALLEN TEST YES; BLOOD TYPE ARTERIAL; HCO3-(ACT) 27.1 mmoll (20.0-26.0); METHB 0.6 % (0.0-1.5); O2(CT) 14.3 mL/dL (15.0-23.0); PCO2(98.6) 43 mmHg (35-45); PO2(98.6) 52 mmHg (60-100); SAMPLE BLOOD; SAO2 90.1 % (95.0-100.0); THB 11.6 g/dL (11.5-17.4); pH(98.6) 7.42 (7.35-7.45)
[2019-07-20 08:20] LABS: MODALITY ROOM AIR; O2HB 87.6 % (95.0-99.0)
--- NOTE | 2019-07-20 08:34 | CARDIOLOGY PROGRESS NOTE ---
DATE: 07/20/2019 CHIEF COMPLAINT: Irregular heartbeat, atrial fibrillation with rapid response, general malaise, dyspnea. SUBJECTIVE: Ms. Crespo states that over the weekend, she has basically done better. Appetite is good. She is moving her bowels. She has been up and about, walking with a walker. Her temperature has not been high. Her heart rate has been fluctuating between 112 and 80 beats per minute. She believes that she is making progress. OBJECTIVE: Blood pressure right now is 146/82, temperature 98.2, pulse 112, respirations 16. She is awake, alert, hard of hearing. HEENT is unremarkable. A little pale. Chest sounds clear to auscultation and percussion. Heart sounds are irregularly irregular. Abdomen is nontender. Abdomen is nontender. No masses. No hepatomegaly. Extremities showed fairly good pulses, no edema. Neurologic: Follows commands, moves all 4 extremities. DIAGNOSTIC DATA: Blood work today showed sodium is 140, potassium 4.4, BUN is 18, creatinine is 1.7. Albumin 3.4. Hemoglobin is 10 g, platelet count is 296,000. IMPRESSION: 1. The patient presented with atrial fibrillation with rapid response in the midst of systemic inflammation. 2. Chronic kidney disease, question of renal artery stenosis. 3. Diastolic heart failure, probably acute on chronic. 4. Hypertension. RECOMMENDATIONS: At this time, I would suggest to go up on the metoprolol to 25 mg every 8 hours and continue diltiazem at 30 mg every 6 hours. As we approach discharge, we can probably switch to long acting drugs, for example, metoprolol XL 100 and diltiazem 380 mg daily to control her heart rate. Upon discharge, she will follow up with her established physicians. Thank you again for the opportunity to participate in her evaluation. cc: Winston Cedeno MD
[2019-07-20] MEDS: HEPARIN SUBQ SCH ×2 (08:52→21:01)
[2019-07-20] MEDS: ATIVAN PO SCH ×2 (12:04→21:01)
[2019-07-20] MEDS: CARAFATE LIQUID PO SCH ×4 (12:04→21:01)
[2019-07-20] MEDS: MIRALAX PO SCH ×2 (12:05→21:01)
--- NOTE | 2019-07-20 13:24 | PROVIDER PROGRESS NOTE ---
Progress Note Subjective: Patient lying in bed awake voice is being hungry because shes been NPO for a scheduled barium swallow this a.m. Denies any uremic complaints. Objective: Vitals. Temperature 98.2, pulse 112, respiration 16, blood pressure 146/82, 02 sat 95% on room air. General: Elderly white female lying in bed in no acute distress HEENT: Normocephalic, atraumatic. Trachea midline. Pupils equal and reactive to light. Skin: warm, dry Neck: Supple, 8 cm JVD appreciated. Cardiovascular: irregularly rate and rhythm with no murmurs or gallops. Respiratory: clear to auscultation bilaterally with equal excursion. Abdomen: soft, obese, non tender, non distended. bowel sounds present. : non-inspected. Extremities: no clubbing or cyanosis. Trace edema to left and right extremity below knee amputations. Neurological: alert and oriented to person and place. Labs: Wbc 4.87, hemoglobin 10, hematocrit 30.7, platelet count to 96, sodium 140, potassium 4.4, chloride 103, carbon dioxide 25, BUN 18, creatinine 1.7, calcium 8.6, phosphorus 4. Intake 0 output 100 with 1 unmeasured void Impression: Acute kidney injury overlying chronic kidney disease stage 3B. Probably at baseline. Blood pressure. Slightly above target. Will restart her ARB.
--- NOTE | 2019-07-20 15:25 | Diag Imaging Result Doc PS360 ---
EXAM: GASTRIC EMPTYING INDICATION: gastroparesis TECHNIQUE: 420 uCi of technetium 99 sulfur colloid was administered orally with oatmeal. Images were obtained in usual fashion. COMPARISON: None. FINDINGS: There is normal-appearing activity in the gastric lumen initially. The extrapolated time to one half emptying is 124.8 minutes. At 120 minutes there was 48% emptying. IMPRESSION: Delayed gastric emptying consistent with the given history of gastroparesis. Electronically signed by Praveen Balbuena 07/20/2019 3:23 PM
[2019-07-20] MEDS: LOPRESSOR PO SCH ×3 (15:40→23:54)
[2019-07-20] MEDS: VIIBRYD PO SCH (15:41)
[2019-07-20] MEDS: COZAAR PO SCH (15:49)
--- NOTE | 2019-07-20 20:25 | PROGRESS NOTE ---
DATE: 07/20/2019 SUBJECTIVE: The patient is resting comfortably. She had nausea this morning. OBJECTIVE: Vital Signs: Temperature 97.8 degrees, blood pressure 153/96, heart rate 97, respirations 16, O2 saturation 93% on room air. General: This is an overweight female lying in bed in no acute distress. Heart: S1, S2 normal. Regular rate and rhythm. Lungs: Equal air entry bilaterally. No wheezing. No rales. No rhonchi. Abdomen: Positive bowel sounds. Soft, nontender, nondistended. Extremities: No edema, no cyanosis. Neurologic: The patient is alert and oriented x3. LABORATORY DATA: White blood cell count 4.8, hemoglobin 10, hematocrit 30, platelets 296,000. ABG: pH of 7.42, pCO2 43, pO2 52, O2 saturation 90% on room air. Sodium 140, potassium 4.4, chloride 103, CO2 25, BUN 18, creatinine 1.7, glucose 135. ASSESSMENT AND PLAN: 1. Gastroparesis. We will defer to GI regarding the agent to use. 2. Hypoxemia. The patient has a paO2 of 52 on room air. We will arrange for home oxygen for the patient. Rhinologist has been notified. 3. Pulmonary edema with pleural effusions. Stable. We will repeat a chest x-ray tomorrow. 4. Acute kidney injury on chronic kidney disease stage 3. The creatinine is slightly elevated today. We will continue to monitor closely. 5. Paroxysmal atrial fibrillation. Continue on Cardizem and Lopressor. 6. Insulin-dependent diabetes mellitus type 2. Continue on Tresiba. 7. Hypertension. Continue on the current antihypertensive regimen. 8. Obesity. Aware. 9. Rheumatoid arthritis. The patient will need to follow up with her golf course patroller in [place] for further treatment. 10. Bilateral renal artery stenosis. Aware. 11. Deep vein thrombosis prophylaxis. Continue on heparin. 12. Disposition. The patient should be able to be discharged home in the next 24 to 48 hours. Continue with physical therapy. cc: Inna Sofia MD MTDD
--- NOTE | 2019-07-20 20:32 | GASTROENTEROLOGY PROGRESS NOTE ---
DATE: 07/20/2019 SUBJECTIVE: Patient still complains of some nausea. She has been n.p.o., waiting on her gastric emptying study at the time of my evaluation. Gastric emptying study results were reviewed once available. It shows delayed gastric emptying consistent with gastroparesis. I do not see where patient has taken Reglan in the past. I have not gone back in to speak with the patient about that. She does have diabetes. Her liver function tests have improved, but have not been repeated over the last several days. OBJECTIVE: Vital Signs: Temperature 97.8 degrees, pulse 97, respirations 16, blood pressure 153/96. General: At the time of my visit, the patient was sitting up in a chair in no acute distress. She is waiting on her gastric emptying study test. LABORATORY: Hematology: WBC 4.87, hemoglobin 10.0, hematocrit 30.7, MCV 90.3, platelets 296,000. Chemistry: Sodium 140, potassium 4.4, chloride 103, CO2 25, BUN 18, creatinine 1.7, glucose 135. ASSESSMENT AND PLAN: Nausea. A gastric emptying study did show delayed gastric emptying. We had looked into starting low dose Reglan, but there is an interaction with her Viibryd antidepressant. Would hold off starting Reglan due to increased risk of tardive dyskinesia related to the interaction with her Viibryd. Would recommend strict glycemic control. Will discuss with the patient gastroparesis diet and recommendations tomorrow. Continue p.r.n. medication for nausea. Would repeat her liver function tests tomorrow. Further plans to be made according to her progress I have discussed this case with Dr. Ramsey. Dictated by LAURITA Oneal for Chase Ramsey MD cc: LAURITA Dwyer MD [facility]
[2019-07-20] MEDS: TRESIBA FLEXTOUCH U-200 SUBQ SCH (21:02)
[2019-07-20] MEDS: NORCO-5 PO PRN (21:11)
[2019-07-21] MEDS: CARDIZEM PO SCH ×4 (03:33→20:18)
[2019-07-21] MEDS: PRILOSEC PO SCH (06:08)
[2019-07-21] MEDS: HUMULIN R SUBQ SCH ×4 (06:08→20:18)
--- NOTE | 2019-07-21 07:19 | Diag Imaging Result Doc PS360 ---
EXAM: CHEST-PORTABLE 07/21/2019 HISTORY: dyspnea TECHNIQUE: AP portable upright at 0552 COMMENT: The inspiration is less optimal than on 07/18/2019. There is a generalized increase in the interstitial opacity of both lungs. The heart size is not enlarged. There is some prominence the pulmonary vascularity centrally. IMPRESSION: Questionable pulmonary edema. Poor inspiration. Electronically signed by Manolo Gutierrez 07/21/2019 7:17 AM
[2019-07-21 08:03] LABS: ALBUMIN 3.7 g/dL (3.5-5.0); CALCIUM 9.2 mg/dL (8.8-10.2); CREATININE 1.3 mg/dL (0.5-0.9); POTASSIUM 3.7 mmol/L (3.5-5.1)
[2019-07-21 08:44] LABS: ALB/GLOB RATIO 1.7; ALBUMIN 3.8 g/dL (3.5-5.0); DIRECT BILIRUBIN 0.1 mg/dL (0.00-0.20); TOTAL BILIRUBIN 0.29 mg/dL (0.20-1.00); TOTAL PROTEIN 6.1 g/dL (6.3-8.3)
[2019-07-21] MEDS: ATIVAN PO SCH ×2 (09:47→20:18)
[2019-07-21] MEDS: LOPRESSOR PO SCH ×2 (09:47→20:17)
[2019-07-21] MEDS: CARAFATE LIQUID PO SCH ×4 (09:48→20:18)
[2019-07-21] MEDS: HEPARIN SUBQ SCH ×2 (09:48→20:17)
[2019-07-21] MEDS: VIIBRYD PO SCH (09:48)
[2019-07-21] MEDS: COZAAR PO SCH (09:48)
[2019-07-21] MEDS: MIRALAX PO SCH ×2 (09:48→20:18)
[2019-07-21] MEDS ORDERED: LASIX PO ONE (15:51)
--- NOTE | 2019-07-21 16:10 | PROVIDER PROGRESS NOTE ---
Progress Note Subjective: Patient lying in bed awake voices right hip hurting from laying on table during procedure yesterday. Voices not getting any rest due to interruptions. Not eating well. Objective: Vitals. Temperature 98.1, pulse 74, respirations 16, blood pressure 158/98, 02 sat 98% on 2L nasal cannula. General: Elderly white female lying in bed in no acute distress HEENT: Normocephalic, atraumatic. Trachea midline. Pupils equal and reactive to light. Skin: warm, dry Neck: Supple, 8 cm JVD appreciated. Cardiovascular: irregularly rate and rhythm with no murmurs or gallops. Respiratory: clear to auscultation bilaterally with equal excursion. Abdomen: soft, obese, tender to left upper quadrant, non distended. bowel sounds present. : non-inspected. Extremities: no clubbing or cyanosis. Trace edema to left and right extremities. Neurological: alert and oriented to person and place. Labs: sodium 142, potassium 3.7, chloride 104, carbon dioxide 27, BUN 17, creatinine 1.3, calcium 9.2, phosphorus 4.0. Intake 0 output 400 with 1 unmeasured void Impression: Acute kidney injury overlying chronic kidney disease stage 3B. She has returned to her baseline function. We will sign off today. Blood pressure. Improved, still elevated. No changes at this time. Nutrition. Poor, encourage eating and start supplements. Ambulation. PT on case Medication review. No changes.
--- NOTE | 2019-07-21 20:13 | PROGRESS NOTE ---
DATE: 07/21/2019 INTERVAL HISTORY: No acute events overnight. She is sitting in the chair. Denies any complaints. We discussed about lung findings. We discussed about her chest x-ray. We also discussed about rehab versus home; however, she states she would rather go home than going to the rehab. She denies any chest pain. She denies known history of coronary artery disease or any lung disease. She denies any cough. VITAL SIGNS: Currently temperature is 98, pulse 84, respiratory rate 18, blood pressure 150/78, saturating 100% on 2 L nasal cannula. PHYSICAL EXAMINATION: General: Does not appear in acute distress. HEENT: Oral cavity is moist. Lungs: Air entry bilaterally equal. No wheeze, rhonchi or crackles. Cardiovascular: S1, S2 normal. Irregularly irregular. Appears to be in atrial fibrillation on bedside monitor. No murmur, rub, or gallop. Abdomen: Soft, nontender. Extremities: Mild bilateral lower extremity edema. LABS: No CBC today. BMP is rather unremarkable except for what appears to be chronic kidney disease stage 3. She does have hyperglycemia. MICROBIOLOGY: Blood culture did not have any growth. IMAGING: Chest x-ray performed today in the morning had questionable pulmonary edema with poor inspiration. On a gastric emptying study yesterday, she had delayed gastric emptying consistent with gastroparesis. ASSESSMENT AND PLAN: 1. Acute hypoxic respiratory failure due to acute pulmonary edema and pulmonary vascular congestion due to likely atrial fibrillation with rapid ventricular rate, as well as congestive heart failure with preserved ejection fraction, with exacerbation. I will give her an additional dose of oral Lasix today and follow up with her response. I will also continue to have her home oxygen and continue oral diltiazem and metoprolol as per Cardiology recommendations. Considering her prior history of gastrointestinal bleed, she is not a candidate for anticoagulation; however, she should have an outpatient discussion with cardiology team about resuming anticoagulation as appropriate. 2. History of insulin-dependent diabetes mellitus. Continue home Tresiba. 3. Acute kidney injury on chronic kidney disease stage 3, now appears to be stable. 4. Obesity. 5. Rheumatoid arthritis, stable. 6. Bilateral renal artery stenosis, stable. 7. Continue heparin for DVT prophylaxis. DISPOSITION: I will monitor patient for another 24 hours since she is still needing Lasix. Based on that, I will consider discharging her tomorrow. Plan of care discussed with her. She wants to go to home with home physical therapy, which I will arrange. cc: Eric Abreu MD
[2019-07-21] MEDS: NORCO-5 PO PRN (20:18)
[2019-07-21] MEDS: TRESIBA FLEXTOUCH U-200 SUBQ SCH (20:18)
[2019-07-22] MEDS: CARDIZEM PO SCH (04:16)
--- NOTE | 2019-07-22 05:17 | GASTROENTEROLOGY PROGRESS NOTE ---
DATE: 07/21/2019 SUBJECTIVE: Patient was lying in bed in no acute distress. She states her nausea is somewhat improved. She had a gastric emptying study that showed delayed gastric emptying. We had discussed starting the Reglan but there was an interaction with her Viibryd medication. I have spoken with the patient about the diagnosis of gastroparesis and the recommendation of diet. She states at home her blood sugar has been under control. She states her most recent hemoglobin A1c by Dr. Patel was around 5.5. She states here in the hospital her blood sugars have been running higher. OBJECTIVE: Vital Signs: Temperature 98.8 degrees, pulse 106, respirations 14 and blood pressure 151/78. General: Patient is awake and alert in no acute distress. Abdomen: Soft. Nontender. Positive bowel sounds. LABORATORY: Hematology: CBC 4.87, hemoglobin 10, hematocrit 30.7, and MCV 90.3. Chemistry: Sodium 142, potassium 3.7, chloride 104, CO2 27, BUN 17, creatinine 1.3, glucose 109, total bilirubin 0.29, AST 14, ALT 23, and alkaline phosphatase 140. ASSESSMENT AND PLAN: Nausea, slightly improved. Gastric emptying study did show delayed gastric emptying. There is an interaction with the Reglan, and one of her other medications so we have elected not to start Reglan. Patient states she also has some tremors anyway so we would not want to put her at increased risk of tardive dyskinesia. I have discussed the recommended diet as far as gastroparesis. Recommend she eat smaller more frequent meals. Make sure she is having good bowel movements. As far as her liver function tests, they are improving. AST and ALT are back to normal and alkaline phosphatase is almost back to normal. We will continue to follow during her hospital course. I have recommended she follow up with us as an outpatient. I have discussed this case with Dr. Ramsey. Dictated by LAURITA Oneal for Chase Ramsey MD cc: LAURITA Dwyer MD [facility]
[2019-07-22] MEDS: HUMULIN R SUBQ SCH ×4 (06:51→20:35)
[2019-07-22] MEDS: PRILOSEC PO SCH (06:52)
[2019-07-22 07:42] LABS: ALBUMIN 3.8 g/dL (3.5-5.0); CREATININE 1.6 mg/dL (0.5-0.9); PHOSPHORUS 4.8 mg/dL (2.7-4.5); POTASSIUM 3.9 mmol/L (3.5-5.1)
--- NOTE | 2019-07-22 08:00 | EKG Report ---
Test Performed on : 07/22/2019 06:36:05 AM Test Reason : afib Blood Pressure : / mmHG Vent. Rate : 110 BPM Atrial Rate : 113 BPM P-R Int : 000 ms QRS Dur : 088 ms QT Int : 358 ms P-R-T Axes : 000 030 069 degrees QTc Int : 484 ms Atrial fibrillation. with rapid ventricular response. Abnormal ECG When compared with ECG of 18-JUL-2019 06:42, No significant change was found Confirmed by Romero PURVIS, P.J.M ([id number]) on 07/22/2019 7:58:15 PM
[2019-07-22] MEDS: CARAFATE LIQUID PO SCH ×4 (09:00→20:46)
[2019-07-22] MEDS: VIIBRYD PO SCH (09:00)
[2019-07-22] MEDS: MIRALAX PO SCH ×2 (09:00→20:48)
[2019-07-22] MEDS: LOPRESSOR PO SCH (09:00)
[2019-07-22] MEDS: HEPARIN SUBQ SCH ×2 (09:01→20:46)
[2019-07-22] MEDS: COZAAR PO SCH (09:01)
[2019-07-22] MEDS: ATIVAN PO SCH ×2 (09:01→20:46)
[2019-07-22] MEDS: CARDIZEM CD PO SCH (13:57)
--- NOTE | 2019-07-22 20:16 | PROGRESS NOTE ---
DATE: 07/22/2019 INTERVAL HISTORY: No acute events overnight. Her diltiazem in the morning time was changed to extended release and her metoprolol were also changed to extended release. Her oxygen saturation was 95% on room air. SUBJECTIVE: Patient denies any chest pain, shortness of breath, nausea, vomiting, abdominal pain. She was able to walk using a walker when the physical therapy evaluated her. Previously, she had expressed her wishes to go home rather than rehab. The initial plan was to discharge her home with home health today. However, later on she states that she is uncomfortable going home today and she would like to be inside the hospital for another 24 hours and I counseled her that there may not be any other medication changes I will be making, but if she was uncomfortable, I would keep her under monitored environment for another 24 hours. VITALS: Temperature 97.6 degrees, pulse 89, respiratory 22, blood pressure 150/79, saturating 97%. PHYSICAL EXAMINATION: Not in acute distress. Mouth: Oral cavity is moist. Lungs: Air entry bilaterally equal. No wheeze, rhonchi, or crackles. Cardiovascular: S1, S2 normal. Irregularly irregular. No murmur or gallop. Abdomen: Soft, nontender. Extremities: Mild bilateral lower extremity edema. Neurologic: She is alert and oriented x3. Input and output suggest -1000 mL yesterday. LABS: No CBC today. BMP suggestive of chronic kidney disease stage 3. No positive culture data. No new imaging. ASSESSMENT AND PLAN: 1. Acute hypoxic respiratory failure due to acute pulmonary edema and pulmonary vascular congestion due to atrial fibrillation with rapid ventricular rate and congestive heart failure with preserved ejection fraction exacerbation. She is breathing well on room air. Start the patient on the long-acting diltiazem and metoprolol as per my discussion with cardiology team. She had history of gastrointestinal bleed in June 2019 so she has not on blood thinners. She should have a have an outpatient discussion with Gastroenterology as well as Cardiology team about resuming or considering blood thinner in future. 2. History of history of insulin-dependent diabetes mellitus. Continue degludec insulin at nighttime, which is controlling her blood sugars in appropriate range. 3. Acute kidney injury on chronic kidney disease stage 3. Now resolved and appears to be stable; she has prior history of obesity, rheumatoid arthritis, bilateral renal artery stenosis, which are currently stable. 4. Gastroparesis causing her recurrent nausea. She was advised to take small frequent meals and outpatient Gastroenterology follow up. DISPOSITION: As per the patient's request, I will monitor her inside the hospital for 24 hours and would consider discharging her tomorrow. Plan of care discussed with her. My initial plan was to discharge her today, but she was uncomfortable. cc: Eric Abreu MD
[2019-07-22] MEDS: NORCO-5 PO PRN (20:46)
[2019-07-22] MEDS: TRESIBA FLEXTOUCH U-200 SUBQ SCH (20:47)
[2019-07-22] MEDS ORDERED: TOPROL XL PO SCH (21:00)
--- NOTE | 2019-07-23 05:57 | GASTROENTEROLOGY PROGRESS NOTE ---
DATE: 07/22/2019 SUBJECTIVE: Patient is sitting up in a chair. She is in no acute distress. She has tolerated the diet today. She reports occasional nausea. OBJECTIVE: Vital Signs: Temperature 97.9 degrees, pulse 105, respirations 19, and blood pressure 158/93. General: Patient is awake and alert sitting up in a chair. LABORATORY: Hematology from 07/20/2019: WBC 4.87, hemoglobin 10, hematocrit 30.7, MCV 90.3. Chemistries: Sodium 139, potassium 3.9, chloride 100, CO2 28, BUN 23, creatinine 1.6, and glucose 123. ASSESSMENT AND PLAN: 1. Nausea improved. 2. Delayed gastric emptying on recent gastric emptying study. There was an interaction with Reglan, and one of her other medications so we decided not to proceed with starting Reglan. We have discussed with the patient gastroparesis diet and strict anti-reflux measures. 3. Elevated liver function tests are improving. 4. Continue current medications. Continue recommended diet adjustment for gastroparesis. Recommend strict glycemic control. Recommend she follow up with us in the office as an outpatient. I have discussed this case with Dr. Ramsey. Dictated by LAURITA Oneal for Chase Ramsey MD cc: LAURITA Dwyer MD
[2019-07-23] MEDS: PRILOSEC PO SCH (06:11)
[2019-07-23] MEDS: HUMULIN R SUBQ SCH ×3 (07:22→18:07)
[2019-07-23] MEDS: ATIVAN PO SCH (09:36)
[2019-07-23] MEDS: COZAAR PO SCH (09:37)
[2019-07-23] MEDS: HEPARIN SUBQ SCH (09:37)
[2019-07-23] MEDS: CARDIZEM CD PO SCH (09:37)
[2019-07-23] MEDS: CARAFATE LIQUID PO SCH ×2 (09:37→13:00)
[2019-07-23] MEDS: VIIBRYD PO SCH (09:37)
[2019-07-23] MEDS: MIRALAX PO SCH (09:39)
[2019-07-23 14:17] LABS: URINE SOURCE CLEAN CATCH
[2019-07-23 14:26] LABS: BILIRUBIN URINE NEGATIVE (NEGATIVE); BLOOD URINE LARGE (NEGATIVE); COLOR YELLOW; GLUCOSE URINE NEGATIVE (NEGATIVE); KETONE URINE TRACE mg/dL (NEGATIVE); LEUKOCYTES URINE MODERATE (NEGATIVE); NITRITE URINE NEGATIVE (NEGATIVE); PROTEIN URINE 100 mg/dL (NEGATIVE); SP GRAVITY URINE >= 1.030; UROBILINOGEN URINE 0.2 EU/dL (0.2-1.0)
[2019-07-23 14:28] LABS: CLARITY CLOUDY (CLEAR)
[2019-07-23 14:35] LABS: URINE BACTERIA 2+ /HFP; URINE EPITHELIAL CELLS <10 /HPF (<10); URINE RBC TNTC /HPF (<10); URINE WBC TNTC /HPF (<10)
[2019-07-23 14:42] VITALS: BP 136/52
[2019-07-23] MEDS ORDERED: LEVAQUIN PO SCH (15:30)
--- NOTE | 2019-07-24 15:03 | DISCHARGE SUMMARY ---
ADMISSION DATE: 07/14/2019 DISCHARGE DATE: 07/23/2019 DISCHARGE DISPOSITION: Home. DISCHARGE CONDITION: Hemodynamically stable. Her O2 saturations decreased to 87% after exercise. She would go home on home O2. She should have outpatient evaluation with regular doctor if she would have continuous need for O2 in future. DISCHARGE DIAGNOSES: 1. Acute hypoxic respiratory failure due to acute pulmonary edema due to pulmonary vascular congestion due to atrial fibrillation with rapid ventricular rate. 2. Congestive heart failure with preserved ejection fraction exacerbation. 3. Acute cystitis. 4. Acute kidney injury on chronic kidney disease stage 3. 5. Gastroparesis causing recurrent nausea. 6. New onset atrial fibrillation with rapid ventricular response. OTHER DIAGNOSES: 1. Chronic kidney disease stage 3. 2. Insulin-dependent diabetes mellitus type 2. 3. Chronic gastroesophageal reflux disease. 4. Bilateral renal artery stenosis. 5. Essential hypertension. 6. Gout. 7. Irritable bowel syndrome. 8. History of Schatzki's ring status post dilatation. 9. History of gastrointestinal bleed. CONSULTATIONS DURING HOSPITALIZATION: Dr. Ramsye, gastroenterology. Dr. Cedeno, cardiology. DISCHARGE MEDICATIONS: 1. Irbesartan 50 mg at nighttime. 2. Insulin degludec 20 units at nighttime subcutaneously. 3. Vitamin B12 1000 mcg oral. 4. Viibryd or vilazodone 20 mg daily. 5. Metoprolol succinate extended release 50 mg at nighttime. 6. Lorazepam 0.5 mg b.i.d. 7. Sucralfate 1 g 4 times a day. 8. Diltiazem 240 mg daily, 60 capsules have been prescribed as an extended release preparation. 9. Levofloxacin 5 mg daily for 7 days. 10. Omeprazole 40 mg daily. VITALS: At the time of discharge temperature 99.1 degrees, pulse 81, respiratory 18, blood pressure 136/52, saturating 97% room air. PHYSICAL EXAMINATION: Not in acute distress. Oral cavity is moist. Lungs: Air entry bilaterally equal. No wheeze, rhonchi, crackles. Cardiovascular: S1, S2 normal. No murmur, rub, or gallop. Irregularly irregular. Abdomen: Soft, nontender. No lower extremity edema. She was alert and oriented x3. SIGNIFICANT LABS DURING HOSPITAL ADMISSION AND DISCHARGE: Her WBC was 4000, hemoglobin was 10, platelet count was 296,000. Her electrolytes, potassium is 3.9. Her BUN is 23, creatinine of 1.6, blood sugar 172. Her urinalysis on July 23 had multiple WBCs. Significant micro during hospital admission, blood culture on July 15 did not have any growth. SIGNIFICANT IMAGING DURING HOSPITAL ADMISSION: Chest x-ray on admission had pulmonary edema, cardiomegaly, pleural effusion. Lung V/Q scan did not have any pulmonary embolism. Chest abdomen CT on July 15 had small bilateral pleural effusions. Bibasilar atelectasis. There was interstitial thickening at the lung bases suggesting mild edema. Renal ultrasound had stable small renal stone and cyst associated with right kidney. Unremarkable renal ultrasound otherwise. Gastric emptying study had delayed gastric emptying consistent with gastroparesis. Chest x-ray on July 21 had a questionable pulmonary edema. It was poor inspiration. Electrocardiogram on admission had atrial fibrillation with rapid ventricular response with heart rate of 106. HOSPITAL COURSE SUMMARY: Ms. Crespo is a 79-year-old lady who had initially presented on 07/14/2019 with chief complaints of increasing shortness of breath and generalized aches and pain. In the emergency room she was found to have atrial fibrillation with rapid ventricular response with heart rate more than 100, requiring intravenous diltiazem. She was also found to have pulmonary edema on the chest x-ray with bilateral pleural effusion. She was started on IV diuresis and rate control medication and was admitted to the hospital for further management and cardiology, gastroenterology team where consulted for further recommendation. Nephrology was also consulted as she had a drop in her BUN to 35, creatinine to 2.4 during hospital admission. With rate control medication, heart rate remained under control and she was tolerating the extended release diltiazem and metoprolol. Considering she had gastrointestinal bleeding in June 2019 requiring endoscopy, it was decided to not start her anticoagulation as per Cardiology recommendation and Cardiology recommendation obtained through telephone and it was decided to discharge the patient without anticoagulation and have outpatient GI and Cardiology followup to have further discussion. The patient's acute kidney injury improved after medication adjustment. However, the day of discharge, she was complaining of urinary urgency and incontinence or repeat urinalysis was performed which had pyuria. She will be discharged on oral Levaquin. TIME SPENT: At time of discharge, more than 30 minutes of time was spent discharging the patient. All of her questions satisfactorily answered. She was advised to have follow up with a blade changer and chief i dispatcher, electronic console display operator and primary care provider. A sucralfate prescription given to her on her request. cc: Eric Abreu MD MTDD
== END 2019-07-23 18:03 | disposition home or self-care (01) | DRG 291 ==
LOC: ED 11:53 → SUATTDRO 18:15 → EDIPHOLD 18:15 → 2N 19:40 → 3N 07-18 14:07
PROVIDERS: ATTEND Internal Medicine